=== PATIENT | female | born 1995 | race Caucasian/White ===

== ENCOUNTER 2020-03-18 23:28 | Inpatient (IN) | payer BC ==
--- OUTSIDE RECORDS SUMMARY | 2020-03-18 23:30 | XMS REPORT | Continuity of Care Document ---
:1995 Author Organization [employer] Care Team Providers Name Role Phone Stageit Information mParticle Unavailable Un available Problems Problem Status Onset Classification Date Comments Sourc e Date Reported PAINFUL Active [facility] HARDWARE RIGHT 6 Medic al ANKLE Center RIGHT Active [facility] BIMALLEOLAR 6 Medical ANKLE FRACTURE Cente r ACETABULAT/H[place] FX 6 [facility] Center R FEMORAL HEAD [place] FX 6 [place] W/DISLOCATION Center Fracture of [place] ankle [place] (disorder[place] Center Kidney stone Resolved Problem 07/27/2016 [place] (disorder[facility] Medical Center Morbid obesity Active Problem 07/27/2016 [place] (disorder[place] [facility] Center FRACTURE OF Active [facility] UNSP PART OF Medical NECK OF RIGHT F Cent er DISPL BIMALLEOL Active [facility] [place] FX R LOW LEG, Medica l SUBS FOR C Center Medications Medication Details Route Status Patient Ordering Order Source Instructions Provider Date Dextrose 50% in 50 mL, Route: No Longer [facility] Water IV IV, Start date: Active 2015 Medical 07/24/16 Center 10:38:00 CDT, Duration: 30 day, Stop date: 08/23/16 10:37:00 CDT, PRN Blood Glucose Results Acetaminophen 325 Notes: Do not No Longer [facility] MG / Hydrocodone exceed 4gm/day Active 2016 Medical Bitartrate 10 MG of Center Oral Tablet acetaminophen. [Rudolph 10/325] (Same as: Rudolph 325/10) Acetaminophen 325 Notes: (Same No Longer [facility] MG / Hydrocodone as: Rudolph Active 2015 Medic al Bitartrate 5 MG 325/5) Do not C enter Oral Tablet exceed 4gm/day [Rudolph 5/325] of acetaminophen. Insulin, Aspart, Notes: Roll in No Longer [facility] Human palms of hands Active 2015 Medical gently; Do not Center shake vigorously. (Same as: NovoLOG) "single patient use only" WASTE: F/P - Black; E - Municipal Trash Bin Stable for 28 days at room temperature. Expires in days from D ate Acetaminophen Notes: Max [place] Longer [place] acetaminophen Active 2015 Medical 4000 mg/day (4 Center gm/day). (Same as: Tylenol Extra Strength) Morphine Notes: (Same No Longer [place] as:MORPhine Active 2015 [facility] Sulfate) Center Hydromorphone Notes: (Same No Longer [place] as: Dilaudid) Active 2015 Medical Center Hydralazine Notes: (Same [place] Longer [place] as: Apresoline) Active 2015 Medical Push over 5 Center minutes Labetalol 10 mg, 2 mL, [place] Longer [place] Route: IVP, Active 2015 Medical Drug form: INJ, Center Q5Min, Dosing Weight 105.455, kg, PRN Elevated BP, Start date: 07/24/16 8:17:00 CDT, Duration: 5 doses or times, Stop date: 07/25/16 0:00:00 CDT Ondansetron Notes: (Same [place] Longer [place] as: Zofran) Active 2015 Medical MEDICATION Center WASTE Product Size: 4 mg Product Wasted: ___ mg Flumazenil Notes: (Same No Longer [place] as: Romazicon) Active 2015 Medical Center Naloxone Notes: Same as No Longer [place] Narcan Active 2015 [facility] Center tramadol 50 mg, PO, Q8H, [place] hydrochloride 50 PRN Pain Score 2016 Medical MG Oral Tablet 1-3, 0 Center Refill(s) tramadol 50 mg, PO, Q8H, Inactive [place] hydrochloride 50 PRN Pain Score 2016 Medical MG Oral Tablet 1-3, # 15 tab, Ce nter 0 Refill(s) pneumococcal Notes: (Same Inactive [place] capsular as: Pneumovax 2015 Medical polysaccharide 23) Center type 1 vaccine / Refrigerate pneumococcal capsular polysaccharide type 10A vaccine / pneumococcal capsular polysaccharide type 11A vaccine / pneumococcal capsular polysaccharide type 12F vaccine / pneumococcal capsular polysacchar Docusate Sodium 100 mg = 1 cap, Active [place] 100 MG Oral PO, BID, # 60 2016 Medica l Capsule [Colace] cap, 0 Center Refill(s) Acetaminophen 300 1 tab, PO, Q4H, Active [place] MG / Codeine PRN Pain, X 7 2016 Medic al Phosphate 30 MG day, # 42 tab, C enter Oral Tablet 0 Refill(s) [Tylenol with Codeine #3] Aspirin 325 MG 325 mg = 1 tab, Active H [place] Oral Tablet PO, Q12H, # 28 2016 Medic al tab, 0 Center Refill(s) Lovenox Notes: (Same Inactive [place] as: Lovenox) 2016 [facility] tramadol Notes: Not to [place] Longer [place] hydrochloride 50 exceed Active 2015 Medical MG Oral Tablet 400mg/day. Center (Same As: [facility]) docusate sodium Notes: (Same No Longer [place] 100 mg oral as: Colace) (Do Active 2015 Medi lalit capsule Not Crush) Center Cefazolin Notes: (Same No Longer [place] As: Ancef, Active 2016 [facility] Kefzol) Center Cefazolin FOR IV SET ONLY MEDICATION WASTE Product Size: 1000 mg Product Wasted: ___ mg Promethazine Notes: Do not Inactive [place] give IV push. 2016 Medical (Same as: Center Phenergan) Naloxone Notes: Same as [place] Narcan 2016 [facility] Center Flumazenil Notes: (Same [place] as: Romazicon) 2016 [facility] Oxycodone Notes: (Same Inactive [place] as: Roxicodone) 2016 [facility] Hydromorphone Notes: Same as: Inactive H [place] Dilaudid 2016 [facility] Ondansetron Notes: (Same Inactive [place] as: Zofran) 2016 Medical MEDICATION Center WASTE Product Size: 4 mg Product Wasted: ___ mg Dulcolax Laxative Notes: (Same No Longer [facility] [place] As: Dulcolax, Active 2015 Medical Correctol) (Do Center Not Crush) "Do Not Crush" Promethazine Notes: Do not Inactive [place] give IV push. 2016 Medical (Same as: Center Phenergan) Ondansetron Notes: (Same [place] Longer [place] as: Zofran) Active 2015 Medical MEDICATION Center WASTE Product Size: 4 mg Product Wasted: ___ mg Morphine Notes: (Same Inactive [facility] as:MORPhine 2016 Medical Sulfate) Center Tramadol Notes: Not to Inactive [place] exceed 2016 Medical 400mg/day. Center (Same As: Ultra) acetaminophen-cod Notes: Do not No Longer [facility] eine #3 exceed 4gm/day Active 2015 Medical of Center acetaminophen. (Same as: Tylenol with Codeine # 3) Diphenhydramine Notes: (Same No Longer [place] as: Benadryl) Active 2015 [facility] Center Al hydroxide/Mg Notes: No Longer [place] hydroxide/simethi (aluminum Active 2015 Medi lalit cone 200 mg-200 hydroxide-magne [place] mg-20 mg/5 mL sium oral suspension hyd-simethicone [phone] l 30 ml ud VIANNEY) Ancef 2 gm, Route: Inactive [place] IVPB, ONCE, 2016 Medical Dosing Weight Center 104.545, kg, Start date: 02/28/16 9:02:00 CDT, Duration: 1 doses or times, Stop date: 02/28/16 9:02:00 CDT, Surgical Prophylaxis Only; For patients < 120 kg Aspirin 325 MG 325 mg = 1 tab, Active H [place] Oral Tablet PO, Daily, PRN 2016 Medic al Fever, # 60 Center tab, 0 Refill(s) tramadol 50 mg = 1 tab, Active [place] hydrochloride 50 PO, BID, # 180 2016 Medical MG Oral Tablet tab, 1 Center Refill(s) Acetaminophen 300 1 tab, PO, Q6H, Active [facility] MG / Codeine PRN Pain, # 60 2016 Medi lalit Phosphate 30 MG tab, 0 Center Oral Tablet Refill(s) [Tylenol with Codeine #3] Aspirin 325 MG 325 mg = 1 tab, Active H [place] Enteric Coated PO, Q12H, # 42 2016 Nm dical Tablet tab, 0 Center Refill(s) Acetaminophen 300 1 - 2 tab, PO, Active [facility] MG / Codeine Q4H, PRN Pain, 2016 Medi lalit Phosphate 30 MG X 4 day, # 36 Ce nter Oral Tablet tab, 0 [Tylenol with Refill(s) Codeine #3] tramadol 100 mg = 2 tab, [place] hydrochloride 50 PO, Q6H, # 30 2016 edical MG Oral Tablet tab, 0 Center Refill(s) Lovenox Notes: (Same No Longer [facility] as: Lovenox) Active 2016 Medical Center sennosides, DETENTION Notes: (Same No Longer [facility] as: Senokot) Active 2016 Medical Center Docusate Notes: (Same No Longer [facility] as: Colace) (Do Active 2015 Medical Not Crush) Center Acetaminophen 325 Notes: (Same No Longer [facility] MG / Hydrocodone as: Rudolph Active 2015 Medic al Bitartrate 5 MG 325/5) Do not C enter Oral Tablet exceed 4gm/day [Rudolph 5/325] of acetaminophen. Tramadol Notes: Not to [place]er [place] exceed Active 2015 Medical 400mg/day. Center (Same As: Ultram) celecoxib Notes: NSAID. No Longer [place] Please check Active 2015 Medical indication. Not Center for seizure. (Same As: CeleBREX) pregabalin Notes: (Same No Longer [place] as: Lyrica) Active 2016 Medical Center Lovenox Notes: (Same Inactive [facility] as: Lovenox) 2016 Medical Center Ketamine 80 mg, Route: Inactive [place] IVP, ONCE, 2015 Medical Dosing Weight Center 106.818, kg, Start date: 02/14/16 7:55:00 CDT, Stop date: 02/14/16 7:55:00 CDT Propofol 110 mg, Route: [place] IVP, ONCE, 2015 Medical Dosing Weight Center 106.818, kg, Start date: 02/14/16 7:54:00 CDT, Stop date: 02/14/16 7:54:00 CDT Morphine 4 mg, Route: Inactive [facility] IVP, Drug form: 2015 Medical INJ, ONCE, Center Dosing Weight 106.818, kg, Priority: STAT, Start date: 02/14/16 6:13:00 CDT, Stop date: 02/14/16 6:13:00 CDT Saline Flush 0.9% Notes: Same as: No Longer 01/30 [facility] BD Posiflush Active 2015 Medical Sterile Center Allergies, Adverse Reactions, Alerts No Known Medication Allergies Immunizations Immunization Date Given Site Status Last Updated Comments Kyra rce pneumococcal 02/29/2016 Not Given [facility] as 23-valent vaccine Nm dical Center Results Order Name Results Value Reference Date Interpretation Comments Kyra rce Range DRUG SCREEN UDS Note See Note 02/14 [facility] (02/15/16 5:11 AM) /2015 Medica l Center DRUG SCREEN U Cannab Scr Positive Negative 02/14 [place] *ABN* [facility] (02/15/16 5:11 AM) Center DRUG SCREEN U Cocaine Scr Negative Negative 02/14 [place] *NA* [facility] (02/15/16 5:11 AM) Center DRUG SCREEN U Opiate Scr Positive Negative 02/14 [place] *ABN* [facility] (02/15/16 5:11 AM) Center DRUG SCREEN U Phencyc Scr Negative Negative 02/14 [place] *NA* [facility] (02/15/16 5:11 AM) Center DRUG SCREEN U Amph Scr Negative Negative 02/14 [place] *NA* Medical (02/15/16 5:11 AM) Center DRUG SCREEN U Nicole Scr Negative Negative 02/14 [place] *NA* Medical (02/15/16 5:11 AM) Center DRUG SCREEN U Benzodia Negative Negative 02/14 [place] Scr *NA* [facility] (02/15/16 5:11 AM) Center URINE AND UA Ketones TR 02/14 [facility] STOOL /2015 Medical Center URINE AND UA Mucus Few /LPF None Seen 02/14 [facility] STOOL /LPF /2015 Medical [place] URINE AND UA RBC 1 0 - 2 02/14 [facility] STOOL /2015 [facility] URINE AND UA Bacteria Occasional None Seen 02/14 [place] STOOL /HPF /HPF [facility] URINE AND UA Protein 30 mg/dL Negative 02/14 [facility] STOOL mg/dL [facility] URINE AND UA Glucose Negative Negative 02/14 [facility] mg/dL mg/dL [facility] URINE AND UA Sq Epi None Seen 02/14 [facility] STOOL [facility] URINE AND UA CaOx Susie Occasional None Seen 02/14 [place] STOOL /HPF /HPF [facility] URINE AND UA 2.0 0.1 - 1.0 02/14 [facility] Urobilinogen /2015 [facility] URINE AND UA Blood Negative Negative 02/14 [facility] (02/15/16 5:11 AM) [facility] URINE AND UA Bili Negative Negative 02/14 [facility] *NA* [facility] (02/15/16 5:11 AM) [place] URINE AND UA Nitrite Negative Negative 02/14 [facility] STOOL (02/15/16 5:11 AM) [facility] URINE AND UA WBC 3 0 - 5 02/14 [facility] STOOL [facility] URINE AND UA Leuk Est Negative Negative 02/14 [facility] STOOL (02/15/16 5:11 AM) [facility] URINE AND UA Turbidity Clear Clear 02/14 [facility] (02/15/16 5:11 AM) [facility] URINE AND UA Spec Grav 1.037 <=1.030 02/14 [facility] STOOL [facility] URINE AND UA pH 6.5 5.0 - 8.0 02/14 [facility] STOOL [facility] URINE AND UA Color Yellow Yellow 02/14 [facility] STOOL *NA* /2015 Medical (02/15/16 5:11 AM) [place] CHEM PANEL Lactic Acid 0.5 0.5 - 2.2 02/13 [place] Lvl /2015 [facility] BLOOD BANK Antibody Scrn Negative 02/13 [place] RESULTS (02/14/16 5:12 AM) [facility] BLOOD BANK ABO/Rh A POS 02/13 [facility] RESULTS [facility] ELECTROLYTE AGAP 15.5 10.0 - 02/13 [facility] S 20.0 [facility] ELECTROLYTE B/C Ratio 16 6 - 25 02/13 [facility] ELECTROLYTE A/G Ratio 1.0 0.7 - 1.6 02/13 [facility] ELECTROLYTE Globulin 3.6 2.0 - 4.0 02/13 [facility] ELECTROLYTE Creatinine 0.70 0.50 - 02/13 [facility] S Lvl 1.40 /2015 [facility] ELECTROLYTE Sodium Lvl 138 135 - 145 02/13 [facility] ELECTROLYTE Glucose Lvl 131 70 - 99 02/13 [facility] ELECTROLYTE BUN 11 7 - 22 02/13 [facility] ELECTROLYTE CO2 22 24 - 32 02/13 [facility] ELECTROLYTE Potassium Lvl 4.5 3.5 - 5.1 02/13 [facility] ELECTROLYTE Calcium Lvl 8.7 8.5 - 10.5 02/13 [place] [facility] ELECTROLYTE Chloride Lvl 105 95 - 109 02/13 [facility] ELECTROLYTE eGFR 127 02/13 [facility] Comment: The Medical eGFR is Center calculated using the CKD-EPI formula. In most young, healthy individuals the eGFR will be >90 mL/min/1.73m2 . The eGFR declines with age. An eGFR of 60-89 may be normal in some populations, particularly the elderly, for whom the CKD-EPI formula has not been extensively validated. Use of the eGFR is not recommended in the following populations:< br/>
Tere viduals with unstable creatinine concentration s, including patients and those with serious co-morbid conditions.<b r/>
Patie nts with extremes in muscle mass or diet.

The data above are obtained from the National Kidney Disease Education Program (NKDEP) which additionally recommends that when the eGFR is used in patients with extremes of body mass index for purposes of drug dosing, the eGFR should be multiplied by the estimated BMI. ELECTROLYTE Total Protein 7.3 6.4 - 8.4 02/13 [facility] ELECTROLYTE Albumin Lvl 3.7 3.5 - 5.0 02/13 [facility] ELECTROLYTE Bili Total 0.6 0.2 - 1.3 02/13 [facility] ELECTROLYTE ALT 33 0 - 65 02/13 [facility] ELECTROLYTE Alk Phos 102 39 - 136 02/13 [facility] ELECTROLYTE AST 35 0 - 37 02/13 [facility] ENDOCRINOLO S Preg Negative Negative 02/13 [facility] GY (02/14/16 5:10 AM) [facility] HEMATOLOGY Plt Morph Normal 02/13 [facility] (02/14/16 5:10 AM) [facility] HEMATOLOGY RBC Morph Normal 02/13 [facility] (02/14/16 5:10 AM) [facility] HEMATOLOGY Basophils 0.4 0.0 - 1.0 02/13 [facility] HEMATOLOGY Segs-Bands # 25.3 1.5 - 8.1 02/13 [facility] HEMATOLOGY Lymphocytes 3.8 20.0 - 02/13 [place] 40.0 [facility] HEMATOLOGY Segs 93.0 45.0 - 02/13 [place] 75.0 [facility] HEMATOLOGY Lymphocytes # 1.0 1.0 - 5.5 02/13 [place] [facility] HEMATOLOGY Basophils # 0.1 0.0 - 0.2 02/13 a s [facility] HEMATOLOGY Monocytes # 0.8 0.0 - 0.8 02/13 a s [facility] HEMATOLOGY Monocytes 2.8 2.0 - 12.0 02/13 [facility] HEMATOLOGY G-value 12.4 5.0 - 11.6 02/13 [facility] HEMATOLOGY Max Amp 71 52 - 71 02/13 [facility] HEMATOLOGY R-time 0.5 0.4 - 0.7 02/13 [facility] HEMATOLOGY [place] 0.4 02/13 [facility] HEMATOLOGY Rapid TEG Citrated Whole Blood 02/13 [facility] Sample Type (02/14/16 5:10 AM) /2015 [facility] HEMATOLOGY ACT (TEG) 97 86 - 118 02/13 [facility] HEMATOLOGY K-time 1.0 0.6 - 2.3 02/13 [facility] HEMATOLOGY Angle 78 64 - 80 02/13 [facility] HEMATOLOGY Estimated % 0.5 0.0 - 7.5 02/13 [place] L[place] [facility] HEMATOLOGY RDW 14.2 11.5 - 02/13 [facility] 14.5 [facility] HEMATOLOGY MCH 26.4 27.0 - 02/13 [facility] 31.0 [facility] HEMATOLOGY MCHC 31.7 32.0 - 02/13 [facility] 36.0 [facility] HEMATOLOGY Platelet 247 133 - 450 02/13 [facility] HEMATOLOGY MPV 9.2 7.4 - 10.4 02/13 [facility] HEMATOLOGY Hgb 12.4 12.0 - 02/13 [facility] 16.0 [facility] HEMATOLOGY Hct 39.1 36.0 - 02/13 [facility] 48.0 [facility] HEMATOLOGY MCV 83.1 80.0 - 02/13 [facility] 98.0 [facility] HEMATOLOGY WBC 27.3 3.7 - 10.4 02/13 [facility] HEMATOLOGY RBC 4.71 4.20 - 02/13 [facility] 5.40 [facility] TOXICOLOGY Etoh (%) <0.003 02/13 [facility] TOXICOLOGY Ethanol Lvl <3 02/13 [facility] Pathology Reports No Data Provided for This Section Diagnostic Reports Report Value Date Source Ankle 3 views DX EXAM: XR RIGHT ANKLE 3 VIEWS 02/28/2016 [facility] DATE: 02/28/2016 1029 hours Cente r INDICATION: Fracture/Surgery COMPARISON: Right ankle radiograph dated 016. TECHNIQUE: AP, lateral and oblique radiographs of the right ankle FINDINGS: There has been an interval lateral plate and screw fixation of the distal right fibular shaft fracture with a single syndesmotic screw also present. Two cortical screws have also been placed through the medial malleolus fracture. The orthopedic hardware through the fracture fragments are in satisfactory alignment. The ankle mortise is congruent. Moderate right ankle soft t issue swelling is noted. A small ankle joint effusion is present. IMPRESSION: Satisfactory al ignment post fixation of the distal right fibular shaft and medial malleolar fractures. Chest 1view DX EXAM: XR CHEST 1 VIEW 02/15/2016 [facility] DATE: 02/15/2016 3:00 AM CDT Cent er INDICATION: Pain Post Trauma COMPARISON: Yesterday morning. TECHNIQUE: AP chest FINDINGS: The inspiratory vo lumes are small but improved from the prior. The lungs are clear. No pneumothorax or pleural effusion. Stable mediastinal contours. IMPRESSION: No acute findings in the chest. Chest 1view DX EXAM: XR CHEST 1 VIEW 02/14/2016 [facility] edical DATE: 02/14/2016 9:20 AM CDT Cent er INDICATION: Pain Post Trauma COMPARISON: Chest x-ray on 02/14/2016 at 0434 stephany rs TECHNIQUE: AP chest FINDINGS: The inspiratory vo lumes are small which accounts for prominence of the cardiac silhouette and some vascular crowding. No pneumothorax is visualized however a supine or semierect radiograph is suboptimal for that determin ation. An erect film of the chest is necessary in order to exclude small pneumothoraces. No pulmonary or pleural-based abnormality is identified. Pulmonary vascularity is nor mal. The heart size is french l for technique. Left posterior first rib fracture better appreciated on previous cross-sectional imaging. IMPRESSION: Low lung volumes with associated vascular crowdi ng. No radiographically evident pneumothorax. Pelvis wo IV EXAM: CT PELVIS WITHOUT CONTRAST 02/14/2016 [facility] contrast/w 3D CT DATE: 02/14/2016 at 0817 hours C enter INDICATION: Abdominal pain, acute TECHNIQUE: Volumetric CT acq uisition of the pelvis without contrast. Axial, sagittal and coronal reformats. IV contrast: None. DLP: 1051 mGy-cm COMPARISON: Chest abdomen pe lvis CT and multiple pelvic radiographs dated 02/14/2016 DISCUSSION: Bones: The right hip is bee n reduced to anatomic position. Multiple intra- articular fracture fragments are present, the largest disc shaped fragment representing the anteroinferior portion of the femor al head and measuring 3 cm i n diameter. The femur is otherwise intact. The right acetabulum and remainder of the pelvis are intact. No pubic symphysis or sacroiliac joint diastasis. Intrapelvic soft tissues: Th e bladder is distended with urine containing excreted contrast. A small volume of free fluid is present with in the retrovesical space, but this fluid is not contrast-enhance d, and its volume has not increased since the CT of 0533 hours this morning. Surrounding soft tissues: T here is moderate swelling of the adductor group muscles. IMPRESSION: 1. Near anatomic alignment following closed red uction.. 2. Multiple intraarticular fracture fragments. The dominant fragment originating from a shear fracture of the anteroinferior femoral head measures 3 cm in diameter and is in anatomic alignment. The remaining intra-articular fragments are punctate. 3. Trace free fluid deep in the pelvis without increase in volume since the comparison CT. 4. Swelling of the musculature surrounding the right hip. Ankle 3 views DX EXAM: XR RIGHT ANKLE 3 VIEWS 02/14/2016 [facility] DATE: 02/14/2016 7:49 AM CDT [facility] er INDICATION: Post-Reduction COMPARISON: Ankle x-ray on 02/14/2016 at 0434 stephany rs TECHNIQUE: AP, lateral and oblique radiographs of the right ankle FINDINGS: Interval casting and reduction of oblique fibular shaft fracture now in near anatomic alignment. Again noted mildly displaced medial malleolar fracture with improved distraction now measuring 2.4 mm. The ankle mortise is congruent. Moderate soft tissue swelling around ankle. IMPRESSION: 1. Interval casting and redu ction of fibular shaft and medial malleolar fractures, Pronation-abduction Stage III ankle injury, with improved alignment. 2. Moderate soft tissue swelling of the right an kle. Pelvis AP DX EXAM: XR PELVIS 1 VIEW 02/14/2016 [facility] DATE: 02/14/2016 8:00 AM T [facility] er INDICATION: Fracture COMPARISON: Pelvis x-ray on 02/14/2016 at 0734 ho urs TECHNIQUE: A single AP supine radiograph of the pelvis FINDINGS: Again noted reduct ion of the right posterior hip dislocation. Alignment is preserved. No acute fracture or malalignment is identified. Retained contrast noted filling the bladder. The soft tissues are unremarkable. IMPRESSION: Preserved, unchanged anatomi c alignment of the right hip. Left hip is unremarkable. Pelvis AP DX EXAM: XR PELVIS 1 VIEW 02/14/2016 [facility] DATE: 02/14/2016 7:31 AM T [facility] er INDICATION: Fracture COMPARISON: Pelvis AP on 01/30 at 0434 hours, chest, abdomen and pelvis CT on 02/14/2016 TECHNIQUE: A single AP supine radiograph of the pelvis FINDINGS: Interval reduction of the posterior hip dislocation now in anatomic alignment. Again noted femoral head fracture appears unchanged and is better seen on prior cross-sectional imaging. No other acute fracture or malalignm ent is identified. Retained contrast noted to fill the bladder. The soft tissues are unremarkable. IMPRESSION: Interval reduction of the ri ght posterior hip dislocation now in anatomic alignment. Stable right femoral head fracture. Spine-Outside EXAM: CT CERVICAL SPINE WITHOUT CONTRAST 016 [facility] DATE: 02/14/2016 5:30 AM CDT Cent er INDICATION: Outside hospital study submitted for 2nd interpretation COMPARISON: None. TECHNIQUE: Study performed a [facility] on 02/14/2016 at 1:32 AM. Volumetric acquisition of the cervical spine without contrast. Axial, sagittal and coronal reconstructions. IV contrast: None. DLP: 977 mGy-cm FINDINGS: The spine is image d from the skull base to the level of T1. Image noise limits assessment in the lower cervical region. There is reversal of normal cervical lordosis. No acute fracture or malalig nment identified in the cervical spine. No pre or paravertebral hematoma seen. There is a nondisplaced left 1st posterior rib fracture. IMPRESSION: 1. No acute fracture or malalignment in the cerv ical spine. 2. Nondisplaced posterior left 1st rib fracture. Torso-Outside EXAM: CT CHEST WITH CONTRAST 02/14/2016 [facility] CT EXAM: CT ABDOMEN AND PELVIS WITH CONTRAST Center DATE: 02/14/2016 5:30 AM CDT INDICATION: Outside hospital study submitted for 2nd interpretation. COMPARISON: None. TECHNIQUE: Study performed a [facility] on 02/14/2016 at 1:14 AM. Volumetric acquisition of the chest, abdomen and pelvis following intravenous administration of contrast. Delaye d imaging was then performed through the abdomen and pelvis, using a radiation reduction technique. Axial, coronal and sagittal reformats. IV contrast: Yes Oral contrast: None. DLP: 3102 mGy-cm FINDINGS: The reformatted images are n ot of diagnostic quality. Hence, the overall evaluation is limited. Specifically, the spine may not be cleared based on this exam. Chest: No mediastinal hematoma or t horacic aortic injury identified. Focal opacity seen in the medial right lung base, image 42 on series 7 may represent atelectasis/contusion. A 3 mm pleural-based nodule is s een in the left lower lobe, image 30 on series 7. No pleural fluid or pneumothorax. Abdomen: No traumatic abnormality flori ntified in the liver, gallbladder, pancreas, spleen, adrenal glands, both kidneys, and bowel and mesentery. Incidentally noted is a 1 cm hypodensity in the right renal upper pole, not well characterized on this exam. The urinary bladder is not w ell distended and could not be assessed. The uterus and adnexa are unremarkable. Trace amount of physiologic fluid is seen within the pelvis. No free intraperitoneal air identified. Spine/Bones: Displaced fracture of the ri ght femoral head is seen with posterior dislocation of the right hip joint. The femoral head fracture fragment projects within the right hip joint space. Small amount of gas seen within the hip joint with hemarthrosis. Nondisplaced left posterior 1st rib fracture is seen. No obvious spine fracture seen on the axial images. However, assessment is incomplete without diagnostic quality reformatted images of the spine. IMPRESSION: 1. Assessment is limited as the reformatted images are not of diagnostic quality. The spine cannot be cleared based on this exam. 2. Focal opacity in the medi al right lung base may represent atelectasis/contusion. 3. No acute traumatic abnormality identified in the abdomen. 4. A 1 cm hypodensity in the

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
--- OUTSIDE RECORDS SUMMARY | 2020-03-18 23:31 | XMS REPORT | Summary of Care ---
:1995 Author Organization [facility] Address [address], [place] [address]- Encounter HQ Encntr_layla(FIN) [id number] Date(s): 02/28/16 - 02/29/16 [facility] [address] [place] [address] Professional Services provided by [facility] [place] [address]- Discharge Disposition: Home Attending Physician: Luigi Corbin MD Admitting Physician: Luigi Corbin MD Referring Physician: Luigi Corbin MD Vital Signs Most recent to oldest 1 2 3 [Reference Range]: Height 162.56 cm 162.56 cm (02/28/16 2:03 PM) (02/27/16 8:39 AM) Temperature Oral [96.4-99.1 97.9 DegF 98.4 DegF 98.4 DegF DegF] (02/29/16 7:46 AM) (02/29/16 3:06 AM) (02/28/16 11: 30 PM) Blood Pressure [90-140/60-90 120/64 mmHg 116/67 mmHg 114 /65 mmHg mmHg] (02/29/16 7:46 AM) (02/29/16 3:06 AM) (02/28/16 11: 30 PM) Respiratory Rate [14-20 BRMIN] 18 BRMIN 18 BRMIN 1 8 BRMIN (02/29/16 7:46 AM) (02/29/16 3:06 AM) (02/28/16 11: 30 PM) Peripheral Pulse Rate [60-100 74 bpm 61 bpm 72 bpm bpm] (02/29/16 7:46 AM) (02/29/16 3:06 AM) (02/28/16 11: 30 PM) Weight 104 kg 104.545 kg (02/28/16 2:03 PM) (02/27/16 8:39 AM) Body Mass Index 39.36 m2 39.56 m2 (02/28/16 2:03 PM) (02/27/16 8:39 AM) Problem List Condition Effective Dates Status Health Status Informant Ankle fracture(Confirmed) Active Kidney stone(Confirmed) Resolved Morbid obesity(Confirmed) Active Allergies, Adverse Reactions, Alerts Substance Reaction Severity Status NKDA Active Medications acetaminophen-codeine #3 2 tab, Route: PO, Drug Form: TAB, Dosing Weight 104.545, kg, Q4H, PRN Pain Score 4-6, Start date: 02/28/16 10:42:00 CDT, Duration: 30 day, Stop date: 03/29/16 10:41:00 CDT Notes: Do not exceed 4gm/day of acetaminophen. (Same as: Tylenol with Codeine # 3) Start Date: 02/28/16 Stop Date: 02/29/16 Status: DiscontinuedAl hydroxide/Mg hydroxide/simethicone 200 mg-200 mg-20 mg/5 mL oral suspension 30 ml, Route: PO, Drug Form: SUSP, Dosing Weight 104.545, kg, Q4H, PRN Indigestion, Start date: 02/28/16 10:42:00 CDT, Duration: 30 day, Stop date: 03/29/16 10:41:00 CDT Notes: (aluminum hydroxide-magnesium hyd-simethicone [phone]/5ml 30 ml ud VIANNEY) Start Date: 02/28/16 Stop Date: 02/29/16 Status: DiscontinuedAncef 2 gm, Route: IVPB, ONCE, Dosing Weight 104.545, kg, Start date: 02/28/16 9:02:00 CDT, Duration: 1 doses or times, Stop date: 02/28/16 9:02:00 CDT, Surgical Prophylaxis Only; For patients < 120 kg Start Date: 02/28/16 Stop Date: 02/28/16 Status: Completedaspirin 325 mg tablet 325 mg = 1 tab, PO, Daily, PRN Fever, # 60 tab, 0 Refill(s) Start Date: 02/27/16 Status: Orderedaspirin 325 mg tablet 325 mg = 1 tab, PO, Q12H, # 28 tab, 0 Refill(s) Start Date: 02/29/16 Stop Date: 03/14/16 Status: OrderedceFAZolin + Sodium Chloride 0.9% IV 100 mL 2 gm, Route: IVPB, Drug form: INJ, Q8H, Dosing Weight 104.545, kg, Start date: 02/28/16 16:00:00 CDT, Duration: 1 day, Stop date: 02/29/16 8:00:00 CDT Notes: (Same As: Mari Garcia)Cefazolin FOR IV SET ONLY MEDICATION WASTE Product Size:1000 mgProduct Wasted: ___ mg Start Date: 02/28/16 Stop Date: 02/29/16 Status: CompletedColace 100 mg oral capsule 100 mg = 1 cap, PO, BID, # 60 cap, 0 Refill(s) Start Date: 02/29/16 Status: OrdereddiphenhydrAMINE 12.5 mg, 5 mL, Route: PO, Drug form: LIQ, Q6H, Dosing Weight 104.545, kg, PRN Itching, Start date: 02/28/16 10:42:00 CDT, Duration: 30 day, Stop date: 03/29/16 10:41:00 CDT Notes: (Same as: Benadryl) Start Date: 02/28/16 Stop Date: 02/29/16 Status: Discontinueddocusate sodium 100 mg oral capsule 100 mg, 1 cap, Route: PO, Drug form: CAP, BID, Dosing Weight 104.545, kg, Start date: 02/28/16 17:00:00 CDT, Duration: 30 day, Stop date: 03/29/16 9:00:00 CDT Notes: (Same as: Colace) (Do Not Crush) Start Date: 02/28/16 Stop Date: 02/29/16 Status: DiscontinuedDulcolax Laxative 5 mg, 1 tab, Route: PO, Drug form: ECTAB, Q24H, Dosing Weight 104.545, kg, PRN Constipation, Start date: 02/28/16 10:42:00 CDT, Duration: 30 day, Stop date: 03/29/16 10:41:00 CDT Notes: (Same As: Dulcolax, Correctol) (Do Not Crush) "Do Not Crush" Start Date: 02/28/16 Stop Date: 02/29/16 Status: Discontinuedflumazenil 0.2 mg, 2 mL, Route: IVP, Drug form: INJ, PRN, Dosing Weight 104.545, kg, PRN Benzodiazepine Reversal, Initial dose, Start date: 02/28/16 10:52:00 CDT, Duration: 30 day, Stop date: 03/29/16 10:51:00 CDT Notes: (Same as: Romazicon) Start Date: 02/28/16 Stop Date: 02/28/16 Status: Discontinuedhydromorphone 0.5 mg, 0.25 mL, Route: IVP, Drug form: INJ, Q5Min, Dosing Weight 104.545, kg, PRN Pain Score 7-10, Start date: 02/28/16 10:52:00 CDT, Duration: 4 doses or times, Stop date: 02/29/16 0:00:00 CDT Notes: Same as: Dilaudid Start Date: 02/28/16 Stop Date: 02/28/16 Status: DiscontinuedLovenox 40 mg, 0.4 mL, Route: SUB-Q, Drug form: INJ, [id number], Dosing Weight 104, kg, Start date: 02/29/16 7:00:00 CDT, Duration: 30 day, Stop date: 03/29/16 7:00:00 CDT Notes: (Same as: Lovenox) Start Date: 02/29/16 Stop Date: 02/29/16 Status: Discontinuedmorphine Sulfate 2 mg, 0.5 mL, Route: IVP, Drug form: INJ, Q3H, Dosing Weight 104.545, kg, PRN Pain Score 1-3, Start date: 02/28/16 10:42:00 CDT, Duration: 30 day, Stop date: 03/29/16 10:41:00 CDT Notes: (Same as:MORPhine Sulfate) Start Date: 02/28/16 Stop Date: 02/28/16 Status: Discontinuednaloxone 0.04 mg, 0.1 mL, Route: IVP, Drug form: INJ, Q2MIN, Dosing Weight 104.545, kg, PRN Narcotic Reversal, Start date: 02/28/16 10:52:00 CDT, Duration: 8 doses or times, Stop date: 02/29/16 0:00:00 CDT Notes: Same as Narcan Start Date: 02/28/16 Stop Date: 02/28/16 Status: Discontinuedondansetron 4 mg, 2 mL, Route: IVP, Drug form: INJ, Q6H, Dosing Weight 104.545, kg, PRN Nausea & Vomiting, Start date: 02/28/16 10:42:00 CDT, Duration: 30 day, Stop date: 03/29/16 10:41:00 CDT Notes: (Same as: Zofran) MEDICATION WASTE Product Size: 4 mgProduct Wasted: ___ mg Start Date: 02/28/16 Stop Date: 02/29/16 Status: Discontinuedondansetron 4 mg, 2 mL, Route: IVP, Drug form: INJ, ONCE, Dosing Weight 104.545, kg, PRN Nausea & Vomiting, Start date: 02/28/16 10:52:00 CDT Notes: (Same as: Zofran) MEDICATION WASTE Product Size: 4 mgProduct Wasted: ___ mg Start Date: 02/28/16 Stop Date: 02/28/16 Status: DiscontinuedoxyCODONE 5 mg, 1 tab, Route: PO, Drug form: TAB, Q4H, Dosing Weight 104.545, kg, PRN Pain Score 4-6, Start date: 02/28/16 10:52:00 CDT, Duration: 30 day, Stop date: 03/29/16 10:51:00 CDT Notes: (Same as: Roxicodone) Start Date: 02/28/16 Stop Date: 02/28/16 Status: Discontinuedpneumococcal 23-valent vaccine 0.5 mL, Route: IM, Drug Form: INJ, Daily, Start date: 02/29/16 9:00:00 CDT, Duration: 1 doses or times, Stop date: 02/29/16 9:00:00 CDT Notes: (Same as: Pneumovax 23) Refrigerate Start Date: 02/29/16 Stop Date: 02/29/16 Status: Completedpromethazine 12.5 mg, 0.5 mL, Route: IVPB, Drug form: INJ, Q4H, Dosing Weight 104.545, kg, PRN Nausea & Vomiting, Start date: 02/28/16 10:42:00 CDT, Duration: 30 day, Stop date: 03/29/16 10:41:00 CDT Notes: Do not give IV push. (Same as: Phenergan) Start Date: 02/28/16 Stop Date: 02/28/16 Status: Discontinuedpromethazine 6.25 mg, 0.25 mL, Route: IVPB, Drug form: INJ, ONCE, Dosing Weight 104.545, kg, PRN Nausea & Vomiting, Start date: 02/28/16 10:52:00 CDT Notes: Do not give IV push. (Same as: Phenergan) Start Date: 02/28/16 Stop Date: 02/28/16 Status: Discontinuedtramadol 50 mg, 1 tab, Route: PO, Drug form: TAB, Q6H, Dosing Weight 104.545, kg, PRN Pain Score 1-3, Start date: 02/28/16 10:42:00 CDT, Duration: 30 day, Stop date: 03/29/16 10:41:00 CDT Notes: Not to exceed 400mg/day. (Same As: Ultram) Start Date: 02/28/16 Stop Date: 02/28/16 Status: Discontinuedtramadol 50 mg oral tablet 50 mg = 1 tab, PO, BID, # 180 tab, 1 Refill(s) Start Date: 02/27/16 Stop Date: 05/27/16 Status: Orderedtramadol 50 mg oral tablet 100 mg, 2 tab, Route: PO, Drug form: TAB, Q6H, Dosing Weight 104, kg, Start date: 02/28/16 18:00:00 CDT, Duration: 30 day, Stop date: 03/29/16 12:00:00 CDT Notes: Not to exceed 400mg/day. (Same As: Ultram) Start Date: 02/28/16 Stop Date: 02/29/16 Status: DiscontinuedTylenol with Codeine #3 oral tablet 1 tab, PO, Q6H, PRN Pain, # 60 tab, 0 Refill(s) Start Date: 02/27/16 Stop Date: 03/13/16 Status: OrderedTylenol with Codeine #3 oral tablet 1 tab, PO, Q4H, PRN Pain, X 7 day, # 42 tab, 0 Refill(s) Start Date: 02/29/16 Stop Date: 03/07/16 Status: Ordered Results No data available for this section Immunizations Vaccine Date Refusal Reason pneumococcal 23-valent vaccine 02/29/16 Patient R efuses Procedures Procedure Date Related Diagnosis Body Site Lithotripsy Tonsillectomy Social History Social History Type Response Smoking Status Current every day smoker; Ex posure to Tobacco Smoke None; Cigarette Smoking Last 365 D ays Yes; Reg Smoking Cessation Counseling No Assessment and Plan Extracted from: Title: APMS Progress Note Author: Nydia Goodman MD Alverto e: 02/29/16 [facility] we came to examine her for her right sapneous singline shot and right popliteal sciatic block. We will follow up with her via phone at home. Nydia Goodman MD PGY-3, Anesthesiology Addendum by Mickie Barba MD on TEACHING [facility] ADDENDUM: I saw and 03/01/2016 08:53 personally examined this pat ient and discussed the plan of care w ith this resident. I have reviewed e note below and agree with the history, examination findings and the plan of brenda calderón
--- OUTSIDE RECORDS SUMMARY | 2020-03-18 23:31 | XMS REPORT | Summary of Care ---
:1995 Author Organization [facility] Address [address], [place] [address]- Encounter HQ Sally_layla(MIKE) [id number] Date(s): 07/24/16 - 07/24/[address] [address]- [place] Discharge Disposition: Home or Self Care Attending Physician: Luigi Corbin MD Referring Physician: Luigi Corbin MD Vital Signs Most recent to oldest 1 2 3 [Reference Range]: Height 162.56 cm 162.56 cm (07/24/16 7:06 AM) (07/21/16 11:48 AM) Blood Pressure [90-140/60-90 125/71 mmHg 133/69 mmHg 135 /69 mmHg mmHg] (07/24/16 9:18 AM) (07/24/16 8:45 AM) (07/24/16 8:3 0 AM) Respiratory Rate [14-20 BRMIN] 17 BRMIN 11 BRMIN 1 9 BRMIN (07/24/16 9:18 AM) *LOW* (07/24/16 8:30 AM) (07/24/16 8:45 AM) Peripheral Pulse Rate [60-100 96 bpm bpm] (07/24/16 6:59 AM) Weight 105.455 kg 105.455 kg (07/24/16 7:06 AM) (07/21/16 11:48 AM) Body Mass Index 39.91 m2 39.91 m2 (07/24/16 7:06 AM) (07/21/16 11:48 AM) Problem List Condition Effective Dates Status Health Status Informant Ankle fracture(Confirmed) Active Kidney stone(Confirmed) Resolved Morbid obesity(Confirmed) Active Allergies, Adverse Reactions, Alerts Substance Reaction Severity Status NKDA Active Medications ANES acetaminophen 1,000 mg, 2 tab, Route: PO, Drug form: TAB, ONCE, Dosing Weight 105.455, kg, PRN Pain Score 1-3, Start date: 07/24/16 8:17:00 CDT, Duration: 1 doses or times, Stop date: Limited # of times Notes: Max acetaminophen 4000 mg/day (4 gm/day). (Same as: Tylenol Extra Strength) Start Date: 07/24/16 Stop Date: 07/25/16 Status: DiscontinuedANES flumazenil 0.2 mg, 2 mL, Route: IVP, Drug form: INJ, PRN, Dosing Weight 105.455, kg, PRN Benzodiazepine Reversal, Initial dose, Start date: 07/24/16 8:17:00 CDT, Duration: 30 day, Stop date: 08/23/16 8:16:00 CDT Notes: (Same as: Romazicon) Start Date: 07/24/16 Stop Date: 07/25/16 Status: DiscontinuedANES hydrALAZINE 10 mg, 0.5 mL, Route: IVP, Drug form: INJ, Q20Min, Dosing Weight 105.455, kg, PRN Elevated BP, Startdate: 07/24/16 8:17:00 CDT, Duration: 2 doses or times, Stop date: 07/25/16 0:00:00 CDT Notes: (Same as: Apresoline)Push over 5 minutes Start Date: 07/24/16 Stop Date: 07/25/16 Status: CompletedANES HYDROmorphone 0.5 mg, 0.25 mL, Route: IVP, Drug form: INJ, Q5Min, Dosing Weight 105.455, kg, PRN Pain Score 7-10, Start date: 07/24/16 8:17:00 CDT, Duration: 4 doses or times, Stop date: 07/25/16 0:00:00 CDT Notes: (Same as: Dilaudid) Start Date: 07/24/16 Stop Date: 07/25/16 Status: CompletedANES labetalol 10 mg, 2 mL, Route: IVP, Drug form: INJ, Q5Min, Dosing Weight 105.455, kg, PRN Elevated BP, Start date: 07/24/16 8:17:00 CDT, Duration: 5 doses or times, Stop date: 07/25/16 0:00:00 CDT Start Date: 07/24/16 Stop Date: 07/25/16 Status: CompletedANES morphine Sulfate 2 mg, 1 mL, Route: IVP, Drug form: INJ, Q5Min, Dosing Weight 105.455, kg, PRN Pain Score 4-6, Start date: 07/24/16 8:17:00 CDT, Duration: 5 doses or times, Stop date: 07/25/16 0:00:00 CDT Notes: (Same as:MORPhine Sulfate) Start Date: 07/24/16 Stop Date: 07/25/16 Status: CompletedANES naloxone 0.4 mg, 1 mL, Route: IVP, Drug form: INJ, Q2MIN, Dosing Weight 105.455, kg, PRN Narcotic Reversal, Start date: 07/24/16 8:17:00 CDT, Duration: 8 doses or times, Stop date: 07/25/16 0:00:00 CDT Notes: Same as Narcan Start Date: 07/24/16 Stop Date: 07/25/16 Status: CompletedANES ondansetron 4 mg, 2 mL, Route: IVP, Drug form: INJ, ONCE, Dosing Weight 105.455, kg, PRN Nausea & Vomiting, Start date: 07/24/16 8:17:00 CDT Notes: (Same as: Shiv) MEDICATION WASTE Product Size: 4 mgProduct Wasted: ___ mg Start Date: 07/24/16 Stop Date: 07/25/16 Status: DiscontinuedDextrose 50% in Water IV 50 mL, Route: IV, Start date: 07/24/16 10:38:00 CDT, Duration: 30 day, Stop date: 08/23/16 10:37:00 CDT, PRN Blood Glucose Results Start Date: 07/24/16 Stop Date: 07/25/16 Status: DiscontinuedDextrose 50% in Water IV 25 mL, Route: IV, Start date: 07/24/16 10:38:00 CDT, Duration: 30 day, Stop date: 08/23/16 10:37:00 CDT, PRN Blood Glucose Results Start Date: 07/24/16 Stop Date: 07/25/16 Status: Discontinuedinsulin aspart 8 unit, 0.08 mL, Route: SUB-Q, Drug form: SOLN, Sliding Scale, Dosing Weight 105.455, kg, PRN Blood Glucose Results, Start date: 07/24/16 8:17:00 CDT, Duration: 30 day, Stop date: 08/23/16 8:16:00 CDT Notes: Roll in palms of hands gently; Do not shake vigorously. (Same as: [employer])"single patient use only"WASTE: F/P - Black; E - Municipal Trash Bin Stable for 28 days at room temperature.Expires in days from Date Start Date: 07/24/16 Stop Date: 07/25/16 Status: Discontinuedinsulin aspart 6 unit, 0.06 mL, Route: SUB-Q, Drug form: SOLN, Sliding Scale, Dosing Weight 105.455, kg, PRN Blood Glucose Results, Start date: 07/24/16 8:17:00 CDT, Duration: 30 day, Stop date: 08/23/16 8:16:00 CDT Notes: Roll in palms of hands gently; Do not shake vigorously. (Same as: [employer])"single patient use only"WASTE: F/P - Black; E - Municipal Trash Bin Stable for 28 days at room temperature.Expires in days from Date Start Date: 07/24/16 Stop Date: 07/25/16 Status: Discontinuedinsulin aspart 10 unit, 0.1 mL, Route: SUB-Q, Drug form: SOLN, Sliding Scale, Dosing Weight 105.455, kg, PRN Blood Glucose Results, Start date: 07/24/16 8:17:00 CDT, Duration: 30 day, Stop date: 08/23/16 8:16:00 CDT Notes: Roll in palms of hands gently; Do not shake vigorously. (Same as: [employer]LOG)"single patient use only"WASTE: F/P - Black; E - Municipal Trash Bin Stable for 28 days at room temperature.Expires in days from Date Start Date: 07/24/16 Stop Date: 07/25/16 Status: Discontinuedinsulin aspart 2 unit, 0.02 mL, Route: SUB-Q, Drug form: SOLN, Sliding Scale, Dosing Weight 105.455, kg, PRN Blood Glucose Results, Start date: 07/24/16 8:17:00 CDT, Duration: 30 day, Stop date: 08/23/16 8:16:00 CDT Notes: Roll in palms of hands gently; Do not shake vigorously. (Same as: [employer])"single patient use only"WASTE: F/P - Black; E - Municipal Trash Bin Stable for 28 days at room temperature.Expires in days from Date Start Date: 07/24/16 Stop Date: 07/25/16 Status: Discontinuedinsulin aspart 4 unit, 0.04 mL, Route: SUB-Q, Drug form: SOLN, Sliding Scale, Dosing Weight 105.455, kg, PRN Blood Glucose Results, Start date: 07/24/16 8:17:00 CDT, Duration: 30 day, Stop date: 08/23/16 8:16:00 CDT Notes: Roll in palms of hands gently; Do not shake vigorously. (Same as: [employer])"single patient use only"WASTE: F/P - Black; E - Municipal Trash Bin Stable for 28 days at room temperature.Expires in days from Date Start Date: 07/24/16 Stop Date: 07/25/16 Status: DiscontinuedNorco 10/325 oral tablet 1 tab, Route: PO, Drug Form: TAB, Dosing Weight 105.455, kg, ONCE, PRN Pain Score 4-6, Start date: 07/24/16 8:17:00 CDT Notes: Do not exceed 4gm/day of acetaminophen. (Same as: Aynor 325/10) Start Date: 07/24/16 Stop Date: 07/25/16 Status: DiscontinuedNorco 5/325 oral tablet 1 tab, Route: PO, Drug Form: TAB, Dosing Weight 105.455, kg, ONCE, PRN Pain Score 1-3, Start date: 07/24/16 8:17:00 CDT Notes: (Same as: Aynor 325/5) Do not exceed 4gm/day of acetaminophen. Start Date: 07/24/16 Stop Date: 07/25/16 Status: Discontinuedtramadol 50 mg oral tablet 50 mg, PO, Q8H, PRN Pain Score 1-3, # 15 tab, 0 Refill(s) Start Date: 07/24/16 Stop Date: 07/24/16 Status: Completedtramadol 50 mg oral tablet 50 mg, 1 tab, Route: PO, Drug form: TAB, Q8H, Dosing Weight 105.455, kg, PRN Pain Score 1-3, Start date: 07/24/16 7:59:00 CDT, Duration: 30 day, Stop date: 08/23/16 7:58:00 CDT Notes: Not to exceed 400mg/day. (Same As: Ultram) Start Date: 07/24/16 Stop Date: 07/25/16 Status: Discontinuedtramadol 50 mg oral tablet 50 mg, PO, Q8H, PRN Pain Score 1-3, 0 Refill(s) Start Date: 07/24/16 Status: Ordered Results No data available for this section Immunizations Not Given Vaccine Date Status Refusal Reason pneumococcal 23-valent vaccine 02/29/16 Not Given P atient Refuses Procedures Procedure Date Related Diagnosis Body Site Lithotripsy Open reduction1 Tonsillectomy 1right ankle also procedure on rt hip Social History Social History Type Response Smoking Status Current every day smoker; Ex posure to Tobacco Smoke None; Cigarette Smoking Last 365 D ays Yes; Reg Smoking Cessation Counseling No Assessment and Plan No data available for this section
[2020-03-19] MEDS ORDERED: NA CHLORIDE 0.9% 1,000 ML ONE (00:10)
[2020-03-19] MEDS ORDERED: ONDANSETRON 4 MG/2 ML VIAL ONE (00:10)
[2020-03-19 00:25] LABS: Absolute Lymphocytes (CBC) 1.4 K/uL (0.7-4.9); Basophils % 0.9 % (0-1.3); Hematocrit 42.6 % (36.0-45.0); Lymphocytes % 14.3 % (15.3-44.8); MPV 8.9 fL (7.6-11.3); RBC Red Blood Cell Count 5.03 M/uL (3.86-4.86)
[2020-03-19 00:41] LABS: ALT/SGPT 295 U/L (12-78); AST/SGOT 132 U/L (15-37); Albumin 4.2 g/dL (3.4-5.0); Alkaline Phosphatase 217 U/L (45-117); BUN Blood Urea Nitrogen 6 mg/dL (7-18); Bicarbonate 22 mmol/L (21-32); Bilirubin Direct 0.5 mg/dL (0-0.2); Bilirubin Total 1.1 mg/dL (0.2-1.0); Glucose Level 99 mg/dL (74-106); Lipase 76 U/L (73-393); Potassium 4.1 mmol/L (3.5-5.1); Protein, Total 8.5 g/dL (6.4-8.2); Sodium Level 141 mmol/L (136-145)
[2020-03-19 02:47] LABS: Urine Blood 3+ (NEG); Urine Glucose NEGATIVE (NEG); Urine Protein 1+ (NEG); Urine Specific Gravity >1.030 (1.005-1.030); Urine pH 6.5 (5.0-7.0)
[2020-03-19 02:51] LABS: Urine Bacteria 20-50 /HPF (<20); Urine Culture Reflex Order REFLEXED; Urine RBC >50 /HPF (NONE SEEN)
--- NOTE | 2020-03-19 03:11 | EDPHYS ---
Physician Documentation [facility] Name: Donny Arreguin Age: 24 yrs Sex: Female : 1995 Arrival Date: 03/18/2020 Time: 23:31 Bed 13 Private MD: ED Physician Darren Heart HPI: 03/19 01:12 This 24 yrs old Female presents to ER via Ambulatory with complaints of tw4 Abdominal Pain, Nausea/Vomiting. 01:12 The patient presents to the emergency department with nausea, vomiting. Onset: The tw4 symptoms/episode began/occurred yesterday. Possible causes: unknown. The symptoms are aggravated by nothing. The symptoms are alleviated by nothing. Associated signs and symptoms: The patient has no apparent associated signs or symptoms. The patient has not experienced similar symptoms in the past. Historical: - Allergies: 03/18 23:48 No Known Allergies; sg - Home Meds: 23:48 None [Active]; sg - PMHx: 23:48 None; sg - PSHx: 23:48 Hip Sx; sg - Immunization history:: Adult Immunizations up to date. - Social history:: Smoking status: Patient denies any tobacco usage or history of. ROS: 03/19 01:12 Constitutional: Negative for fever, chills, and weight loss, Eyes: Negative for injury, tw4 pain, redness, and discharge, Cardiovascular: Negative for chest pain, palpitations, and edema, Respiratory: Negative for shortness of breath, cough, wheezing, and pleuritic chest pain. Back: Negative for injury and pain, MS/Extremity: Negative for injury and deformity, Skin: Negative for injury, rash, and discoloration, Neuro: Negative for headache, weakness, numbness, tingling, and seizure. Abdomen/GI: Positive for abdominal pain, nausea and vomiting, nausea, vomiting, and diarrhea, nausea, vomiting, Negative for diarrhea, constipation, abdominal cramps, abdominal distension, anorexia, black/tarry stool, rectal pain, rectal bleeding. Exam: 01:12 Constitutional: This is a well developed, well nourished patient who is awake, alert, tw4 and in no acute distress. Head/Face: Normocephalic, atraumatic. Chest/axilla: Normal chest wall appearance and motion. Nontender with no deformity. No lesions are appreciated. Cardiovascular: Regular rate and rhythm with a normal S1 and S2. No gallops, murmurs, or rubs. Normal PMI, no JVD. No pulse deficits. Respiratory: Lungs have equal breath sounds bilaterally, clear to auscultation and percussion. No rales, rhonchi or wheezes noted. No increased work of breathing, no retractions or nasal flaring. Skin: Warm, dry with normal turgor. Normal color with no rashes, no lesions, and no evidence of cellulitis. MS/ Extremity: Pulses equal, no cyanosis. Neurovascular intact. Full, normal range of motion. Neuro: Awake and alert, GCS 15, oriented to person, place, time, and situation. Cranial nerves II-XII grossly intact. Motor strength 5/5 in all extremities. Sensory grossly intact. Cerebellar exam normal. Normal gait. Psych: Awake, alert, with orientation to person, place and time. Behavior, mood, and affect are within normal limits. Vital Signs: 03/18 23:32 BP 142 / 70; Pulse 101; Resp 18; Temp 99.2; Pulse Ox 100% on R/A; Weight 95.25 kg (R); sg Height 5 ft. 6 in. (167.64 cm); Pain 10/10; 03/19 00:30 BP 131 / 95; Pulse 85; Resp 18; Temp 98.1; Pulse Ox 98% ; Pain 4/10; bb3 01:39 BP 131 / 96; Pulse 64; Resp 18; Pulse Ox 96% ; Pain 4/10; bb3 03:30 BP 134 / 83; Pulse 59; Resp 16; Temp 98.2; Pulse Ox 100% on R/A; lp1 03/18 23:32 Body Mass Index 33.89 (95.25 kg, 167.64 cm) sg MDM: 03/18 23:46 Patient medically screened. tw4 03/19 03:06 Differential diagnosis: Nonspecific abd pain, gastritis, cholecystitis, pancreatitis. tw4 Data reviewed: vital signs, nurses notes. Data reviewed: lab test result(s), CBC, hepatic panel, radiologic studies, CT scan. Data interpreted: alarm security or surveillance monitor: Pulse oximetry: Interpretation: normal. Test interpretation: by ED physician or midlevel provider: not applicable. Counseling: I had a detailed discussion with the patient and/or guardian regarding: the historical points, exam findings, and any diagnostic results supporting the discharge/admit diagnosis, lab results, radiology results. Medication response: morphine markedly relieved the patient's pain. Symptoms have improved. Response to treatment: and as a result, I will admit patient. Physician consultation: Keaton Smith MD regarding admission, to the medical/surgical unit. patient's condition, and will see patient in inpatient room. Admission orders: after a detailed discussion of the patient's condition and case, the admit orders are written by me. 03/18 23:50 Order name: Basic Metabolic Panel; Complete Time: 01:07 [facility] 03/19 01:07 Interpretation: Normal except: CL 110; BUN 6. 03/18 23:50 Order name: CBC with Diff; Complete Time: 01:07 [facility] 03/19 01:08 Interpretation: Normal except: RBC 5.03; MCV 84.7; WENCESLAO% 81.3; LYM% 14.3; NEUT A 8.2. 03/18 23:50 Order name: Hepatic Function; Complete Time: 01:07 03/19 01:08 Interpretation: Normal except: AST 132; ALT 295; ALK 217; BILIT 1.1; BILID 0.5; TP 8.5; tw4 GLOB 4.3; A/G 1.0. 03/18 23:50 Order name: Lipase; Complete Time: 01:07 03/19 01:08 Interpretation: Within normal limits: LIP 76. 03/19 01:09 Order name: Urine Microscopic Only; Complete Time: 03:03 [facility] 03/19 03:04 Interpretation: Normal except: URBC >50; SQEPI 5-10; UBACT 20-50. 03/19 01:52 Order name: Hepatitis Panel 03/19 01:10 Order name: CT Abd/Pelvis - IV Contrast Only 03/19 01:53 Order name: Urine Dipstick--Ancillary (enter results); Complete Time: 03:03 03/19 03:06 Interpretation: Normal except: UESTR TRACE; UPROT 1+; UBLD 3+; UKET 1+. 03/19 01:53 Order name: Urine --Ancillary (enter results); Complete Time: 03:04 mw03/19 03:06 Interpretation: Normal except: USPGR >1.030. tw4 03/19 02:53 Order name: Urine Culture EDNJ 03/19 04:06 Order name: US Abdomen Limited tw 03/18 23:50 Order name: IV Saline Lock; Complete Time: 00:20 tw4 03/18 23:50 Order name: Labs collected and sent; Complete Time: 00:20 tw4 03/19 01:09 Order name: Urine Dipstick-Ancillary (obtain specimen); Complete Time: 01:52 tw4 03/19 01:10 Order name: Urine Test (obtain specimen); Complete Time: 01:52 4 03/19 03:17 Order name: CONS Pharmacy Consult [facility] 03/19 03:17 Order name: NPO EDNJ Administered Medications: 03/18 00:25 Drug: Zofran (Ondansetron) 4 mg Route: IVP; Site: right antecubital; bb3 03/19 00:58 Follow up: Response: No adverse reaction; Vomiting decreased bb3 00:25 Drug: NS 0.9% 1000 ml Route: IV; Rate: 1 bolus; Site: right antecubital; bb3 03:30 CANCELLED (Physician Discretion): D5-1/2 NS 1000 ml IV at bolus once; 1000 mL bolus; lp1 followed by 125 mL/hr continuous 03:42 Drug: Zosyn 3.375 grams Route: IVPB; Infused Over: 60 mins; Site: right antecubital; lp1 04:40 Follow up: IV Status: Completed infusion lp1 03:42 Drug: D5-1/2 NS 1000 ml Route: IV; Rate: 100 ml/hr; Site: right antecubital; lp1 04:40 Follow up: IV Status: Infusion continued upon admission lp1 Disposition: 03/19/20 03:10 Hospitalization ordered by Keaton Smith for Inpatient Admission. Preliminary diagnosis is Acute cholecystitis. - Bed requested for Telemetry/MedSurg (Inpatient). - Status is Inpatient Admission. lp1 - Condition is Stable. - Problem is new. - Symptoms have improved. Signatures: Dispatcher [employer] EDNJ Kervin Boyce RN RN sg Pena, Laura, RN RN lp1 Tamiko Lepe RN RN cg Wadley, Terrence, MD MD tw4 Danette Carmen bb3 Corrections: (The following items were deleted from the chart) 03:30 03:26 D5-1/2 NS 1000 ml IV at bolus once; 1000 mL bolus; followed by 125 mL/hr lp1 continuous ordered. tw4 03:35 03:10 Hospitalization Ordered by Keaton Smith MD for Inpatient Admission. Preliminary cg diagnosis is Acute cholecystitis. Bed requested for Telemetry/MedSurg (Inpatient). Status is Inpatient Admission. Condition is Stable. Problem is new. Symptoms have improved. tw4 04:40 03:35 03/19/2020 03:10 Hospitalization Ordered by Keaton Smith MD for Inpatient lp1 Admission. Preliminary diagnosis is Acute cholecystitis. Bed requested for Telemetry/MedSurg (Inpatient). Status is Inpatient Admission. Condition is Stable. Problem is new. Symptoms have improved. cg
--- NOTE | 2020-03-19 03:11 | ER ---
Nurse's Notes [facility] Name: Donny Arreguin Age: 24 yrs Sex: Female : 1995 Arrival Date: 03/18/2020 Time: 23:31 Bed 13 Private MD: Diagnosis: Acute cholecystitis Presentation: 03/18 23:32 Acuity: RACIEL 3 sg 23:32 Chief complaint: Patient states: N/V today that began around 0400, reports having vomit sg that is bright yellow and watery, pt states having pain bilateral upper quadrants, worsening on the right side with pain that radiates to the right side of her upper back, pt states having had a hx of kidney stones but this feels much different. Coronavirus screen: Proceed with normal triage. Ebola Screen: Patient negative for fever greater than or equal to 101.5 degrees Fahrenheit, and additional compatible Ebola Virus Disease symptoms Patient denies exposure to infectious person. Patient denies travel to an Ebola-affected area in the 21 days before illness onset. No symptoms or risks identified at this time. Initial Sepsis Screen: Does the patient meet any 2 criteria? HR > 90 bpm. No. Patient's initial sepsis screen is negative. Does the patient have a suspected source of infection? Yes: Acute abdominal pain. Risk Assessment: Do you want to hurt yourself or someone else? Patient reports no desire to harm self or others. Onset of symptoms was March 18, 2020. Care prior to arrival: None. Transition of care: patient was not received from another setting of care. 23:32 Method Of Arrival: Ambulatory sg Historical: - Allergies: 23:48 No Known Allergies; sg - Home Meds: 23:48 None [Active]; sg - PMHx: 23:48 None; sg - PSHx: 23:48 Hip Sx; sg - Immunization history:: Adult Immunizations up to date. - Social history:: Smoking status: Patient denies any tobacco usage or history of. Screenin/19 01:52 Abuse screen: Denies threats or abuse. Denies injuries from another. Nutritional lp1 screening: No deficits noted. Tuberculosis screening: No symptoms or risk factors identified. Fall Risk None identified. Assessment: 00:00 General: Appears distressed, uncomfortable, Behavior is calm, cooperative, Reports bb3 feeling ill for > 3 days. Pain: Complains of pain in right upper quadrant and left upper quadrant Pain currently is 4 out of 10 on a pain scale. Quality of pain is described as aching, Pain began pain started about 2 wks ago per pt report. GI: Reports upper abdominal pain, nausea, vomiting. 01:40 Reassessment: Patient appears in no apparent distress at this time. Patient and/or bb3 family updated on plan of care and expected duration. Pain level reassessed. Patient is alert, oriented x 3, equal unlabored respirations, skin warm/dry/pink. Patient states feeling better. Patient states symptoms have improved. General: Appears in no apparent distress. comfortable, Behavior is calm, cooperative, appropriate for age. Pain: Complains of pain in left upper quadrant and right upper quadrant Pain currently is 4 out of 10 on a pain scale. 02:00 Reassessment: Patient appears in no apparent distress at this time. Patient is alert, lp1 oriented x 3, equal unlabored respirations, skin warm/dry/pink. Patient resting in bed, requesting water, aware of waiting for CT results;. 03:19 Reassessment: Provider at bedside to discuss results with patient; patient demonstrates lp1 understanding; Informed of remaining NPO. Vital Signs: 03/18 23:32 BP 142 / 70; Pulse 101; Resp 18; Temp 99.2; Pulse Ox 100% on R/A; Weight 95.25 kg (R); sg Height 5 ft. 6 in. (167.64 cm); Pain 10/10; 03/19 00:30 BP 131 / 95; Pulse 85; Resp 18; Temp 98.1; Pulse Ox 98% ; Pain 4/10; bb3 01:39 BP 131 / 96; Pulse 64; Resp 18; Pulse Ox 96% ; Pain 4/10; bb3 03:30 BP 134 / 83; Pulse 59; Resp 16; Temp 98.2; Pulse Ox 100% on R/A; lp1 03/18 23:32 Body Mass Index 33.89 (95.25 kg, 167.64 cm) sg ED Course: 03/18 23:31 Patient arrived in ED. cl3 23:32 Arm band placed on. sg 23:33 Triage completed. sg 23:46 Darren Heart MD is Attending Physician. tw4 03/19 00:10 Missed attempt(s): 20 gauge in left antecubital area. Bleeding controlled, band aid sg applied, catheter tip intact. 00:14 Initial lab(s) drawn, by me, sent to lab. Inserted saline lock: 22 gauge in right sg antecubital area, using aseptic technique. Blood collected. 01:52 Natalie Lee, KAR is Primary Nurse. lp1 01:52 Report received from KAR Samaniego. lp1 01:52 Patient has correct armband on for positive identification. lp1 02:33 CT Abd/Pelvis - IV Contrast Only In Process Unspecified. EDMS 02:36 No provider procedures requiring assistance completed. lp1 03:10 Keaton Smith MD is Hospitalizing Provider. tw4 03:47 Patient admitted, IV remains in place. lp1 Administered Medications: 03/18 00:25 Drug: Zofran (Ondansetron) 4 mg Route: IVP; Site: right antecubital; bb3 03/19 00:58 Follow up: Response: No adverse reaction; Vomiting decreased bb3 00:25 Drug: NS 0.9% 1000 ml Route: IV; Rate: 1 bolus; Site: right antecubital; bb3 03:30 CANCELLED (Physician Discretion): D5-1/2 NS 1000 ml IV at bolus once; 1000 mL bolus; lp1 followed by 125 mL/hr continuous 03:42 Drug: Zosyn 3.375 grams Route: IVPB; Infused Over: 60 mins; Site: right antecubital; lp1 04:40 Follow up: IV Status: Completed infusion lp1 03:42 Drug: D5-1/2 NS 1000 ml Route: IV; Rate: 100 ml/hr; Site: right antecubital; lp1 04:40 Follow up: IV Status: Infusion continued upon admission lp1 Outcome: 03:10 Decision to Hospitalize by Provider. tw4 03:47 Condition: stable lp1 03:47 Instructed on the need for admit. 04:39 Admitted to Med/surg via wheelchair, room 213, with chart, Report called to KAR Samaniego lp1 04:40 Patient left the ED. lp1 Signatures: Dispatcher [employer] EDMS Kervin Boyce RN RN sg Pena, Laura, RN RN lp1 Darren Heart MD MD tw4 Mick Saunders cl3 Danette Carmen bb3 Corrections: (The following items were deleted from the chart) 00:18 0518 23:32 BP 142 / 70; Pulse 101bpm; Resp 18bpm; Pulse Ox 100% RA; Temp 98.2F; 95.25 sg kg Reported; Height 5 ft. 6 in.; BMI: 33.8; Pain 10/10; sg
[2020-03-19] MEDS ORDERED: PIPER/TAZO/NS 3.375gm 3.375 GM/100 ML BAG ONE (03:19)
[2020-03-19] MEDS ORDERED: D5 0.45 NS 1,000 ML IV ONE (03:37)
[2020-03-19] MEDS: MORPHINE 4 MG/ML SYR IV PRN ×2 (05:26→12:29)
[2020-03-19] MEDS: NA CHLORIDE 0.9% 1,000 ML IV SCH ×3 (05:27→23:40)
[2020-03-19 07:30] VITALS: BMI 57.9
--- NOTE | 2020-03-19 08:14 | RAD REPORT ---
EXAM DESCRIPTION: US - Abdomen Exam Limited - 03/19/2020 8:00 am CLINICAL HISTORY: Abdominal pain. COMPARISON: March 19 CAT scan FINDINGS: Several gallstones. The gallbladder is distended. The gallbladder wall is thickened. . Common bile duct measures 8 millimeters. IMPRESSION: Cholelithiasis with gallbladder distention. Thickened gallbladder wall may indicate chol ecystitis Mildly dilated common bile duct
--- NOTE | 2020-03-19 09:28 | P.CNS ---
Date of Consult: 03/19/20 Reason for Consult: Medical Management Requesting Physician: Keaton Simth Primary Care Provider: HENRIETTA Garcia Chief Complaint: Abdominal pain History of Present Illness: 24-year-old female presented with right upper quadrant abdominal pain. I was consulted for medical management by surgery. Patient has been reporting right upper quadrant pain with nausea and vomiting over the last 2 weeks. Symptoms have been getting worse. Patient seen in the ER and found to have acute cholecystitis with elevated liver function and noted dilated common bile duct. Patient was admitted for further evaluation and treatment. When I saw the patient in the room, pain significantly improved. Patient on IV antibiotic therapy and IV fluids. Patient denies any major medical problems. Surgery wanted me to evaluate to see if patient will require transfer to higher level care center for ERCP or if GI can be called to further address. I was able to get in contact with GI. He is willing to see patient and consider a ERCP. Allergies No Known Allergies Allergy (Unverified 02/14/16 03:17) Home medications list reviewed: Yes Home Medications: NK [No Home Meds] 03/19/20 - Past Medical/Surgical History Diabetic: No -: Tobacco abuse -: Obesity, BMI 58 -: Tonsillectomy Psychosocial/ Personal History: Patient lives at home. - Family History Father Family History: Reviewed- Non-Contributory - Social History Smoking Status: Heavy Tobacco smoker (>10 cigarettes/day) Counseled patient to stop smoking for: less than 10 minutes Smoking therapy provided: Yes Patient receptive to therapy: Yes Alcohol use: Yes CD- Drugs: No Caffeine use: Yes Place of Residence: Home Review of Systems General: Fever, Chills, As per HPI Eyes: Unremarkable ENT: Unremarkable Respiratory: Unremarkable Cardiovascular: Unremarkable Gastrointestinal: Nausea, Vomiting, Abdominal Pain, As per HPI Musculoskeletal: Unremarkable Integumentary: Unremarkable Neurological: Unremarkable Lymphatics: Unremarkable Physical Examination Temp Pulse Resp BP Pulse Ox 97.7 F 57 16 138/78 97 03/19/20 08:00 03/19/20 08:00 03/19/20 08:00 03/19/20 08:00 03/19/20 08:00 General: Alert, In no apparent distress, Oriented x3, Cooperative HEENT: Atraumatic, Normocephalic, Other (Dry mucous membranes) Respiratory: Clear to auscultation bilaterally, Normal air movement Cardiovascular: Normal pulses, Regular rate/rhythm Gastrointestinal: Normal bowel sounds, Soft and benign, Non-distended, No masses, No rebound, No guarding, Tenderness (Mild pain to the right upper quadrant) Musculoskeletal: No erythema, No tenderness, No warmth Integumentary: No tenderness/swelling, No erythema, No warmth, No cyanosis Neurological: Normal speech, Normal strength at 5/5 x4 extr, Normal tone, Normal affect Laboratory Data (last 24 hrs) 03/19/20 00:14: WBC 10.1, Hgb 14.1, Hct 42.6, Plt Count 286 03/19/20 00:14: Sodium 141, Potassium 4.1, BUN 6 L, Creatinine 0.62, Glucose 99, Total Bilirubin 1.1 H, AST 132 H, ALT 295 H, Alkaline Phosphatase 217 H, Lipase 76 Conclusions/Impression: Impression: Right upper quadrant abdominal pain with elevated liver function secondary to acute cholecystitis with cholelithiasis and noted dilated common bile duct Tobacco abuse Obesity, BMI 58 Plan: Right upper quadrant abdominal pain with elevated liver function secondary to acute cholecystitis with cholelithiasis and noted dilated common bile duct: Case discussed at length with surgery. I was able to get in contact with GI who willing to see the patient. GI recommends MRCP at this time. Patient will likely require ERCP as well after MRCP. Surgery will be planned after a ERCP done. Await further recommendations by GI and surgery. Tobacco abuse: Cessation addressed. Will provide nicotine patch. Obesity, BMI 58: Will address lifestyle modification. Time Spent Managing Pts care (In Minutes): 55
[2020-03-19] MEDS: NICOTINE 21 MG/PAT TD SCH (10:06)
[2020-03-19] MEDS: PIPER/TAZO/NS 3.375gm 3.375 GM/100 ML BAG IVPB SCH ×2 (10:06→17:08)
--- NOTE | 2020-03-19 10:29 | RAD REPORT ---
EXAM DESCRIPTION: CT - Abdomen Pelvis W Contrast - 03/19/2020 7:06 am CLINICAL HISTORY: The patient is 24 years old and is Female; ABD PAIN TECHNIQUE: Axial computed tomography images of the abdomen and pelvis with intravenous contrast. S agittal and coronal reformatted images were created and reviewed. This CT exam was performed using one or more of the following dose reduction techniques: automated exposure control, adjustment of t he mA and/or kV according to patient size, and/or use of iterative reconstruction technique. COMPARISON: No relevant prior studies available. FINDINGS: LUNG BASES: Unremarkable. No mass. No consolidation. ABDOMEN: LIVER: Unremarkable. No mass. GALLBLADDER AND BILE DUCTS: The gallbladder is distended moderate biliary dilatation is present. No calcified gallstones are seen. Suggestion of mild gallbladder wall thickening/pericholecystic flui d is noted. PANCREAS: No ductal dilation. No mass. SPLEEN: Unremarkable. ADRENALS: Unremarkable. No mass. KIDNEYS AND URETERS: A small right renal cysts are present, the largest measures 0.9 cm. The kidney s enhance symmetrically. No obstructing renal or ureteral calculus is seen. No hydronephrosis or hydr oureter. No perinephric fluid or stranding. STOMACH AND BOWEL: The stomach is moderately fluid-filled. The small bowel is decompressed. Mini mal stool is noted throughout the colon. There is no mucosal thickening or evidence of bowel obstruct ion. PELVIS: APPENDIX: The appendix is normal in caliber without surrounding inflammation. BLADDER: The bladder is not well distended. REPRODUCTIVE: Unremarkable as visualized. ABDOMEN and PELVIS: INTRAPERITONEAL SPACE: Unremarkable. No free air. No significant fluid collection. BONES/JOINTS: No acute fracture. SOFT TISSUES: The soft tissues are normal. VASCULATURE: Unremarkable. No abdominal aortic aneurysm. LYMPH NODES: Unremarkable. No enlarged lymph nodes. IMPRESSION: Gallbladder distention with biliary dilatation and suggestion of mild pericholecystic fl uid. If there is clinical concern for acute gallbladder pathology, findings could be further evaluate d with ultrasound or HIDA scan. Electronically signed by: Sushila Linda MD 03/19/2020 2:46 AM CDT Due to temporary technical issues with the PACS/Fluency reporting system, reports are being signed by the in house radiologist as a courtesy to ensure prompt reporting. The interpreting radiologist is f ully responsible for the content of the report.
--- NOTE | 2020-03-19 12:08 | RAD REPORT ---
EXAM DESCRIPTION: MRICholangiogram03/19/2020 11:52 am CLINICAL HISTORY: Abdominal pain COMPARISON: March 19 ultrasound TECHNIQUE: Magnetic resonance cholangiogram was performed.3D MIP reconstruction performed FINDINGS: Multiple gallstones. The gallbladder is distended. Gallbladder wall is thickened. Mild dilatation of the biliary tree. A filling defect within the common bile duct is not seen Pancreatic duct is normal caliber IMPRESSION: Cholelithiasis. Gallbladder distention. Thickened gallbladder wall may indicate cholecys titis Mild dilatation of the common bile duct. A stone within the duct is not visualized
[2020-03-19] MEDS: ONDANSETRON 4 MG/2 ML VIAL IV PRN ×2 (13:33→18:56)
[2020-03-19 13:57] LABS: Protime INR 1.16
[2020-03-19] MEDS: FENTANYL CITR 100 MCG/2 ML IV PRN ×3 (13:58→18:56)
[2020-03-19] MEDS ORDERED: FENTANYL CITR 100 MCG/2 ML IV ONE (16:00)
[2020-03-19] MEDS: HYDROCODONE/APAP 7.5/325 MG TAB PO PRN ×2 (17:07→23:48)
[2020-03-19 20:17] LABS: Barbiturates NEGATIVE (NEGATIVE); Benzodiazepines NEGATIVE (NEGATIVE); Cocaine NEGATIVE (NEGATIVE); METHAMPHETAM POSITIVE (NEGATIVE); Methadone NEGATIVE (NEGATIVE); Opiates POSITIVE (NEGATIVE); Phencyclidine NEGATIVE (NEGATIVE); THC Cannibis POSITIVE (NEGATIVE)
[2020-03-20] MEDS: PIPER/TAZO/NS 3.375gm 3.375 GM/100 ML BAG IVPB SCH ×3 (00:04→16:21)
[2020-03-20] MEDS: ONDANSETRON 4 MG/2 ML VIAL IV PRN (00:22)
[2020-03-20] MEDS: MORPHINE 4 MG/ML SYR IV PRN ×5 (02:54→23:38)
--- NOTE | 2020-03-20 03:08 | HP ---
Date of Admission: 03/19/2020 Brief History Of Present Illness: Patient is a female who presents to the hospital with ri ght upper quadrant pain beginning approximately 3 days ago. She states that the pain began in the ep igastrium, right upper quadrant, associated with eating fatty greasy meal. She has had this been goi ng on for several weeks, for at least 2-3 weeks and perhaps even longer, but noted pain, and her inte rmittent episodes have been starting to get more frequent, and as such, she came to the emergency [facility] with the above-stated complaints. She states that since she has been here at the hospital, she has had significant improvement in her symptoms, but continues to have intermittent episodes of epigastr ic and right upper quadrant abdominal pain, but not as bad as when seen in the ER. She has been give n pain medication, which has given her some improvement, but has been incompletely treating her sympt oms at this point. She has had no more nausea, vomiting, but continues to have the epigastric and ri ght upper quadrant abdominal pain with occasional radiation to the left upper quadrant. None to her back. No other symptoms associated. Past Medical History: Obesity with a BMI of 58. Past Surgical History: She has had a tonsillectomy. Medications: She denies any home medications. Allergies: SHE HAS NO KNOWN DRUG ALLERGIES. Social History: She lives at home. She admits to tobacco abuse. She admits to marijuana. She admi ts to a history of approximately a month ago of multiple drugs including cocaine, methamphetamines, P CP, Xanax, ecstasy, etc. She drinks alcohol recreationally as well. Review of Systems: A 10-point review of systems other than HPI, denies. Physical Examination: Vital Signs: At the time of my examination, her BMI is 58. She is 4 feet 6 inches, 240 pounds. Her vital signs were a temperature of 97.7, pulse 57, respiratory rate 16, blood pressure 138/78, pulse ox is 97% on room air. General: She is awake, alert, and oriented. Psychiatric: She is appropriate, conversive. HEENT: She is normocephalic. Her sclerae are anicteric. Her mucous membranes are moist. Oropharyn x is clear. Neck: Supple. No JVD. Chest: Normal expansion and excursion. Cardiovascular: Regular rate and rhythm. Pulmonary: Clear to auscultation bilaterally. Abdomen: Soft with mild epigastric and right upper quadrant tenderness to palpation. Negative Solange y sign. No rebound. No guarding. No focal peritonitis. Abdomen is obese generally. Extremities: No clubbing, cyanosis, or edema. Skin: Warm and dry. Laboratory Data: Reveals a white blood cell count of 10.1, hemoglobin is 14.1, hematocrit of 42.6, p latelet count is 286, her neutrophils are 81%. PT , INR 1.1, PTT is 36.3. Sodium 141, pot assium 4.1, chloride 110, carbon dioxide 22, BUN 6, creatinine 0.6, glucose is 99, total bilirubin 1. 1, direct bilirubin 0.5, AST is 132, ALT 295, alkaline phosphatase of 217. Her lipase is 76. Her UA showed greater than 50 red blood cells, it showed squamous cells, bacteria 20-50, 1+ total protein. test was negative. She has a hepatitis panel currently pending. She had imaging performe d, which included an abdomen and pelvis CT read at approximately 1 in the morning as gallbladder dist ention with biliary dilatation suggestive of mild pericholecystic fluid with a concern for acute gall bladder pathology, findings to be further evaluated with ultrasound and HIDA. She had a followup ult rasound at 4:06 in the morning officially read as cholelithiasis with gallbladder distention, thicken ed gallbladder wall may indicate cholecystitis, mildly dilated common bile duct measuring 8 mm. She had an MRCP following which officially showed a cholelithiasis, gallbladder distention, thickened gal lbladder wall may indicate cholecystitis, mild dilatation of common bile duct stone within the duct i s not visualized. Assessment And Plan: This is a 24-year-old female who comes in with signs and symptoms of acute calc ulous cholecystitis and dilatation of her bile duct. 1.IV fluid hydration. 2.Antibiotic coverage with Zosyn 3.375. 3.Pain control. 4.Medical management. 5.Patient will require Gastroenterology consultation to discuss the dilatation of the bile duct. 6.I have explained the risks, benefits, and alternatives of laparoscopic, possible open cholecystect jose including but not limited to bleeding, infection, damage to surrounding tissues, injury to bile d ucts, intestines, need for further operation and procedures, patient may require a cholangiogram. Ad ditionally, patient would like to wait at this point, and as stated, she wants to try clear liquid di et as her symptoms continued to improve and would prefer to try nonoperative measures at this point a nd come back to get this done as an outpatient. I recommended surgery at this time currently today. However, she is not interested in pursuing surgery at this time, and therefore, I will allow her radha ar liquid diet today and re-evaluate her in the morning and recheck her labs. If her symptoms contin ued to improve, she may be a nonoperative management candidate, but I still recommend cholecystectomy . However, her and her father would like to wait in the interim. GEREMIAS/MARYELLEN Voice ID: [id number]
[2020-03-20 06:09] LABS: Absolute Lymphocytes (CBC) 1.9 K/uL (0.7-4.9); Basophils % 0.3 % (0-1.3); Hematocrit 37.5 % (36.0-45.0); MPV 9.1 fL (7.6-11.3); RBC Red Blood Cell Count 4.37 M/uL (3.86-4.86)
[2020-03-20] MEDS: FENTANYL CITR 100 MCG/2 ML IV PRN ×4 (06:43→20:39)
[2020-03-20 07:26] LABS: ALT/SGPT 136 U/L (12-78); AST/SGOT 33 U/L (15-37); Albumin 2.8 g/dL (3.4-5.0); Alkaline Phosphatase 137 U/L (45-117); BUN Blood Urea Nitrogen 10 mg/dL (7-18); Bicarbonate 19 mmol/L (21-32); Glucose Level 74 mg/dL (74-106); Lipase 4683 U/L (73-393); Potassium 3.8 mmol/L (3.5-5.1); Protein, Total 6.1 g/dL (6.4-8.2); Sodium Level 137 mmol/L (136-145)
[2020-03-20 08:29] LABS: Blood Morphology Comment NOT SEEN (NOT SEEN); Platelet Estimate ADEQ; Urine White Blood Cell Casts OK
[2020-03-20] MEDS: NICOTINE 21 MG/PAT TD SCH (09:00)
[2020-03-20] MEDS: NA CHLORIDE 0.9% 1,000 ML IV SCH ×4 (11:09→21:16)
[2020-03-20] MEDS: HYDROCODONE/APAP 7.5/325 MG TAB PO PRN ×2 (14:16→21:44)
--- NOTE | 2020-03-20 15:12 | P.PN ---
Subjective Date of Service: 03/20/20 Primary Care Provider: HENRIETTA Garcia Chief Complaint: Abdominal pain Subjective: Other (Patient reports slight improvement. Less pain noted. Less nausea noted.) Physical Examination - Vital Signs Temperature: 98.8 F Blood Pressure: 156/88 Pulse: 82 Respirations: 18 Pulse Ox (%): 96 - Physical Exam General: Alert, Cooperative HEENT: Atraumatic Neck: Supple Respiratory: Clear to auscultation bilaterally, Normal air movement Cardiovascular: Normal pulses, Regular rate/rhythm Gastrointestinal: Hypoactive, Soft and benign, Tenderness (Less pain to the epigastric and right upper quadrant region.) Integumentary: No tenderness/swelling, No erythema, No warmth, No cyanosis Neurological: Normal speech, Normal strength at 5/5 x4 extr, Normal tone, Normal affect - Studies Medications List Reviewed: Yes Assessment & Plan Discharge Plan: Home Plan to discharge in: 72 Hours Physician Review Additional Text: Impression: Right upper quadrant abdominal pain with elevated liver function secondary to acute gallstone pancreatitis and noted dilated common bile duct Tobacco abuse Urine drug screen positive for amphetamines, opiates and marijuana Obesity, BMI 58 Plan: Right upper quadrant abdominal pain with elevated liver function secondary to acute gallstone pancreatitis and noted dilated common bile duct: Case discussed at length with surgery. Lipase levels noted. Liver function tests slightly improved. Overall patient has improved. Will continue to monitor closely. Surgery wants to wait on surgical intervention. Possible surgery tomorrow. Will discuss further with surgery. Patient may require a ERCP as well. Will discuss with GI. Continue IV fluids. Continue current plan of care. Will follow along with surgery. Tobacco abuse: Cessation addressed. Will provide nicotine patch. Urine drug screen positive for amphetamines, opiates and marijuana: This has been reported by patient to this surgeon. Encourage cessation. Obesity, BMI 58: Will address lifestyle modification. Time Spent Managing Pts Care (In Minutes): 55
--- NOTE | 2020-03-20 16:15 | P.PN ---
Subjective Date of Service: 03/20/20 Primary Care Provider: HENRIETTA Garcia Chief Complaint: Abdominal pain Subjective: No new changes (Patient continues to have abdominal pain, epigastric with radiation to LLQ) Physical Examination - Vital Signs Temperature: 98.8 F Blood Pressure: 156/88 Pulse: 82 Respirations: 18 Pulse Ox (%): 96 - Physical Exam General: Alert, In no apparent distress, Cooperative HEENT: Mucous membr. moist/pink Gastrointestinal: Other (soft, obese, + epigastric TTP, minimal RUQ TTP, negative murphys) - Studies Medications List Reviewed: Yes Assessment And Plan - Current Problems (Diagnosis) (1) Gallstone pancreatitis Current Visit: Yes Status: Acute (2) Acute gallstone pancreatitis Current Visit: Yes Status: Acute Plan: - Continue pain management with current regime - increase IV fluids to 125cc/hr - serial exams - incentive spirometry - clear liquid diet - will plan cholecytectomy when pancreatitis resolves Physician Review Additional Text: Impression: Right upper quadrant abdominal pain with elevated liver function secondary to acute gallstone pancreatitis and noted dilated common bile duct Tobacco abuse Urine drug screen positive for amphetamines, opiates and marijuana Obesity, BMI 58 Plan: Right upper quadrant abdominal pain with elevated liver function secondary to acute gallstone pancreatitis and noted dilated common bile duct: Case discussed at length with surgery. Lipase levels noted. Liver function tests slightly improved. Overall patient has improved. Will continue to monitor closely. Surgery wants to wait on surgical intervention. Possible surgery tomorrow. Will discuss further with surgery. Patient may require a ERCP as well. Will discuss with GI. Continue IV fluids. Continue current plan of care. Will follow along with surgery. Tobacco abuse: Cessation addressed. Will provide nicotine patch. Urine drug screen positive for amphetamines, opiates and marijuana: This has been reported by patient to this surgeon. Encourage cessation. Obesity, BMI 58: Will address lifestyle modification.
--- NOTE | 2020-03-20 16:28 | P.PN ---
Subjective Date of Service: 03/20/20 Primary Care Provider: HENRIETTA Garcia Chief Complaint: Abdominal pain Review of Systems 10-point ROS is otherwise unremarkable Gastrointestinal: Abdominal Pain Physical Examination - Vital Signs Temperature: 98.8 F Blood Pressure: 156/88 Pulse: 82 Respirations: 18 Pulse Ox (%): 96 - Studies Medications List Reviewed: Yes Assessment And Plan - Current Problems (Diagnosis) (1) Cholelithiasis Current Visit: Yes Status: Acute (2) Cholecystitis Current Visit: Yes Status: Acute (3) Abnormal transaminases Current Visit: Yes Status: Acute (4) Abnormal ultrasound of abdomen Current Visit: Yes Status: Acute (5) Gallstone pancreatitis Current Visit: Yes Status: Acute - Plan REC: 1) IVFs 2) IV antibiotics 3) monitor labs 4) NPO 5) lap sharri as per surgery Physician Review Additional Text: Impression: Right upper quadrant abdominal pain with elevated liver function secondary to acute gallstone pancreatitis and noted dilated common bile duct Tobacco abuse Urine drug screen positive for amphetamines, opiates and marijuana Obesity, BMI 58 Plan: Right upper quadrant abdominal pain with elevated liver function secondary to acute gallstone pancreatitis and noted dilated common bile duct: Case discussed at length with surgery. Lipase levels noted. Liver function tests slightly improved. Overall patient has improved. Will continue to monitor closely. Surgery wants to wait on surgical intervention. Possible surgery tomorrow. Will discuss further with surgery. Patient may require a ERCP as well. Will discuss with GI. Continue IV fluids. Continue current plan of care. Will follow along with surgery. Tobacco abuse: Cessation addressed. Will provide nicotine patch. Urine drug screen positive for amphetamines, opiates and marijuana: This has been reported by patient to this surgeon. Encourage cessation. Obesity, BMI 58: Will address lifestyle modification.
[2020-03-21] MEDS: PIPER/TAZO/NS 3.375gm 3.375 GM/100 ML BAG IVPB SCH ×3 (00:29→16:33)
[2020-03-21] MEDS: FENTANYL CITR 100 MCG/2 ML IV PRN ×4 (01:25→16:33)
[2020-03-21] MEDS: NA CHLORIDE 0.9% 1,000 ML IV SCH ×4 (02:57→19:53)
[2020-03-21] MEDS: MORPHINE 4 MG/ML SYR IV PRN ×4 (03:57→18:33)
[2020-03-21 05:41] LABS: Absolute Lymphocytes (CBC) 1.3 K/uL (0.7-4.9); Basophils % 0.3 % (0-1.3); Lymphocytes % 10.3 % (15.3-44.8); MPV 9.1 fL (7.6-11.3); RBC Red Blood Cell Count 4.03 M/uL (3.86-4.86)
[2020-03-21 06:08] LABS: ALT/SGPT 88 U/L (12-78); AST/SGOT 11 U/L (15-37); Albumin 2.7 g/dL (3.4-5.0); Alkaline Phosphatase 120 U/L (45-117); BUN Blood Urea Nitrogen 4 mg/dL (7-18); Bicarbonate 24 mmol/L (21-32); Bilirubin Direct 0.5 mg/dL (0-0.2); Bilirubin Total 1.3 mg/dL (0.2-1.0); Glucose Level 87 mg/dL (74-106); Lipase 903 U/L (73-393); Potassium 3.4 mmol/L (3.5-5.1); Sodium Level 140 mmol/L (136-145)
[2020-03-21] MEDS: NICOTINE 21 MG/PAT TD SCH (08:47)
--- NOTE | 2020-03-21 11:11 | P.PN ---
Subjective Date of Service: 03/21/20 Primary Care Provider: HENRIETTA Garcia Chief Complaint: Abdominal pain Subjective: Improving (Pain has significantly improved. Less nausea noted.) Physical Examination - Vital Signs Temperature: 97 F Blood Pressure: 154/92 Pulse: 89 Respirations: 18 Pulse Ox (%): 100 - Physical Exam General: Alert, In no apparent distress, Oriented x3, Cooperative HEENT: Atraumatic Neck: Supple Respiratory: Clear to auscultation bilaterally, Normal air movement Cardiovascular: Normal pulses, Regular rate/rhythm Gastrointestinal: Normal bowel sounds, Tenderness (Less pain to the right upper quadrant) Integumentary: No tenderness/swelling, No erythema, No warmth, No cyanosis Neurological: Normal speech, Normal strength at 5/5 x4 extr, Normal tone, Normal affect - Studies Microbiology Data (last 24 hrs): 03/19/20 01:45 Clean Catch Urine [place] Count - Final >100,000 CFU/ML. 03/19/20 01:45 Clean Catch Urine - Final MIXED MICHELLE. Medications List Reviewed: Yes Assessment & Plan Discharge Plan: Home Plan to discharge in: 72 Hours Physician Review Additional Text: Impression: Right upper quadrant abdominal pain with elevated liver function secondary to acute gallstone pancreatitis and noted dilated common bile duct Tobacco abuse Elevated blood pressure Urine drug screen positive for amphetamines, opiates and marijuana Obesity, BMI 58 Plan: Right upper quadrant abdominal pain with elevated liver function secondary to acute gallstone pancreatitis and noted dilated common bile duct: Lipase improved. Liver function tests also improved. Case discussed with surgery. Surgery is planned but surgery we will discuss with GI about the possibility of doing ERCP first. Will reach out to GI to further discuss. Encourage ambulation. Continue IV antibiotic therapy and IV fluids. Tobacco abuse: Cessation addressed. Continue to provide nicotine patch. Urine drug screen positive for amphetamines, opiates and marijuana: This has been reported by patient to this surgeon. Encourage cessation. Elevated blood pressure: Possible underlying hypertension. Will monitor closely. This may be related to her pain. Will consider medication if this persists or increases. Obesity, BMI 58: Will address lifestyle modification. Time Spent Managing Pts Care (In Minutes): 55
[2020-03-21] MEDS: KCL 20 MEQ/100 mL IVPB 20 MEQ/100 ML BAG IV SCH ×2 (11:28→13:34)
--- NOTE | 2020-03-21 15:12 | P.PN ---
Subjective Date of Service: 03/21/20 Primary Care Provider: HENRIETTA Garcia Chief Complaint: Abdominal pain Subjective: Improving (Patient has decreased abdominal pain, but continues to be primarily epigastric. tolerated clears.) Physical Examination - Vital Signs Temperature: 98.3 F Blood Pressure: 144/85 Pulse: 86 Respirations: 18 Pulse Ox (%): 100 - Physical Exam General: Alert, In no apparent distress, Cooperative HEENT: Mucous membr. moist/pink Respiratory: Clear to auscultation bilaterally Cardiovascular: Regular rate/rhythm Gastrointestinal: Other (soft, obese, mild epigastric TTP, ND, minimal RUQ TTP, Negative murpys) - Studies Microbiology Data (last 24 hrs): 03/19/20 01:45 Clean Catch Urine [place] Count - Final >100,000 CFU/ML. 03/19/20 01:45 Clean Catch Urine - Final MIXED MICHELLE. Medications List Reviewed: Yes Assessment And Plan - Current Problems (Diagnosis) (1) Gallstone pancreatitis Current Visit: Yes Status: Acute (2) Acute gallstone pancreatitis Current Visit: Yes Status: Acute Plan: - Continue pain management with current regime - IV fluids to 125cc/hr - serial exams - incentive spirometry - clear liquid diet - will plan cholecytectomy when pancreatitis resolves - continue to trend LFT / Lipase Physician Review Additional Text: Impression: Right upper quadrant abdominal pain with elevated liver function secondary to acute gallstone pancreatitis and noted dilated common bile duct Tobacco abuse Elevated blood pressure Urine drug screen positive for amphetamines, opiates and marijuana Obesity, BMI 58 Plan: Right upper quadrant abdominal pain with elevated liver function secondary to acute gallstone pancreatitis and noted dilated common bile duct: Lipase improved. Liver function tests also improved. Case discussed with surgery. Surgery is planned but surgery we will discuss with GI about the possibility of doing ERCP first. Will reach out to GI to further discuss. Encourage amb ulation. Continue IV antibiotic therapy and IV fluids. Tobacco abuse: Cessation addressed. Continue to provide nicotine patch. Urine drug screen positive for amphetamines, opiates and marijuana: This has been reported by patient to this surgeon. Encourage cessation. Elevated blood pressure: Possible underlying hypertension. Will monitor closely. This may be related to her pain. Will consider medication if this persists or increases. Obesity, BMI 58: Will address lifestyle modification.
[2020-03-21] MEDS: HYDROCODONE/APAP 7.5/325 MG TAB PO PRN (20:42)
[2020-03-21] MEDS ORDERED: POTASSIUM CL SA 10 MEQ TAB PO ONE (22:36)
[2020-03-22] MEDS: NA CHLORIDE 0.9% 1,000 ML IV SCH ×5 (00:20→21:50)
[2020-03-22] MEDS: PIPER/TAZO/NS 3.375gm 3.375 GM/100 ML BAG IVPB SCH ×3 (00:20→17:00)
[2020-03-22] MEDS: MORPHINE 4 MG/ML SYR IV PRN (00:36)
[2020-03-22 03:41] LABS: HBsAG Nonreactive (Nonreactive)
[2020-03-22] MEDS: FENTANYL CITR 100 MCG/2 ML IV PRN ×4 (04:46→21:50)
[2020-03-22 05:22] LABS: Absolute Lymphocytes (CBC) 1.9 K/uL (0.7-4.9); Basophils % 0.7 % (0-1.3); Hematocrit 31.5 % (36.0-45.0); Lymphocytes % 17.3 % (15.3-44.8); MPV 9.7 fL (7.6-11.3); RBC Red Blood Cell Count 3.76 M/uL (3.86-4.86)
[2020-03-22 05:40] LABS: ALT/SGPT 60 U/L (12-78); AST/SGOT 9 U/L (15-37); Albumin 2.7 g/dL (3.4-5.0); Alkaline Phosphatase 105 U/L (45-117); BUN Blood Urea Nitrogen 2 mg/dL (7-18); Bicarbonate 24 mmol/L (21-32); Glucose Level 98 mg/dL (74-106); Lipase 286 U/L (73-393); Magnesium 1.8 mg/dL (1.8-2.4); Potassium 3.5 mmol/L (3.5-5.1); Protein, Total 6.1 g/dL (6.4-8.2); Sodium Level 140 mmol/L (136-145)
[2020-03-22] MEDS ORDERED: MAGNESIUM SULFATE 1 gm IVPB 1 GM/100 ML BAG IV ONE (07:00)
--- NOTE | 2020-03-22 07:50 | P.PN ---
Subjective Date of Service: 03/22/20 Primary Care Provider: HENRIETTA Garcia Chief Complaint: Abdominal pain Subjective: Improving (Patient continues to have epigastric and LUQ TTP, with mild RUQ TTP) Physical Examination - Vital Signs Temperature: 98.7 F Blood Pressure: 133/76 Pulse: 80 Respirations: 19 Pulse Ox (%): 97 - Physical Exam General: Alert, In no apparent distress, Cooperative HEENT: Mucous membr. moist/pink Gastrointestinal: Other (soft, obese, + epigastric, RUQ, LUQ TTP, ND, negative murphys) - Studies Microbiology Data (last 24 hrs): 03/19/20 01:45 Clean Catch Urine [place] Count - Final >100,000 CFU/ML. 03/19/20 01:45 Clean Catch Urine - Final MIXED MICHELLE. Medications List Reviewed: Yes Assessment And Plan - Current Problems (Diagnosis) (1) Gallstone pancreatitis Current Visit: Yes Status: Acute (2) Acute gallstone pancreatitis Current Visit: Yes Status: Acute Plan: - Continue pain management with current regime - IV fluids to 125cc/hr - serial exams - incentive spirometry - clear liquid diet - NPO after midnight - will plan cholecytectomy when pancreatitis resolves - plan for surgery in AM - continue to trend LFT / Lipase Physician Review Additional Text: Impression: Right upper quadrant abdominal pain with elevated liver function secondary to acute gallstone pancreatitis and noted dilated common bile duct Tobacco abuse Elevated blood pressure Urine drug screen positive for amphetamines, opiates and marijuana Obesity, BMI 58 Plan: Right upper quadrant abdominal pain with elevated liver function secondary to acute gallstone pancreatitis and noted dilated common bile duct: Lipase improved. Liver function tests also improved. Case discussed with surgery. Surgery is planned but surgery we will discuss with GI about the possibility of doing ERCP first. Will reach out to GI to further discuss. Encourage ambulation. Continue IV antibiotic therapy and IV fluids. Tobacco abuse: Cessation addressed. Continue to provide nicotine patch. Urine drug screen positive for amphetamines, opiates and marijuana: This has been reported by patient to this surgeon. Encourage cessation. Elevated blood pressure: Possible underlying hypertension. Will monitor closely. This may be related to her pain. Will consider medication if this persists or increases. Obesity, BMI 58: Will address lifestyle modification.
[2020-03-22] MEDS ORDERED: POTASSIUM CL SA 10 MEQ TAB PO ONE (08:00)
[2020-03-22] MEDS: NICOTINE 21 MG/PAT TD SCH (09:00)
[2020-03-22] MEDS: HYDROCODONE/APAP 7.5/325 MG TAB PO PRN ×2 (10:01→18:30)
--- NOTE | 2020-03-22 17:01 | P.PN ---
Subjective Date of Service: 03/22/20 Primary Care Provider: HENRIETTA Garcia Chief Complaint: Abdominal pain Subjective: Doing well Physical Examination - Vital Signs Temperature: 97.7 F Blood Pressure: 146/88 Pulse: 77 Respirations: 15 Pulse Ox (%): 96 - Physical Exam General: Alert, Cooperative HEENT: Atraumatic Neck: Supple Respiratory: Clear to auscultation bilaterally, Normal air movement Cardiovascular: Normal pulses, Regular rate/rhythm Gastrointestinal: Tenderness (Less pain to the abdomen) Neurological: Normal speech, Normal strength at 5/5 x4 extr, Normal tone, Normal affect - Studies Medications List Reviewed: Yes Assessment & Plan Discharge Plan: Home Plan to discharge in: 48 Hours Physician Review Additional Text: Impression: Right upper quadrant abdominal pain with elevated liver function secondary to acute gallstone pancreatitis and noted dilated common bile duct Tobacco abuse Elevated blood pressure Urine drug screen positive for amphetamines, opiates and marijuana Obesity, BMI 58 Plan: Right upper quadrant abdominal pain with elevated liver function secondary to acute gallstone pancreatitis and noted dilated common bile duct: Lipase improved. Liver function tests also improved. Case discussed with surgery today. Surgery plans intervention tomorrow. Await findings. Tobacco abuse: Cessation addressed. Continue to provide nicotine patch. Urine drug screen positive for amphetamines, opiates and marijuana: This has been reported by patient to this surgeon. Encourage cessation. Elevated blood pressure: Possible underlying hypertension. Will monitor closely. This may be related to her pain. Will consider medication if this persists or increases. Obesity, BMI 58: Will address lifestyle modification. Time Spent Managing Pts Care (In Minutes): 55
[2020-03-23] MEDS: HYDROCODONE/APAP 7.5/325 MG TAB PO PRN ×3 (00:41→23:47)
[2020-03-23] MEDS: PIPER/TAZO/NS 3.375gm 3.375 GM/100 ML BAG IVPB SCH ×3 (00:42→16:16)
[2020-03-23] MEDS: NA CHLORIDE 0.9% 1,000 ML IV SCH ×5 (05:13→21:49)
[2020-03-23 06:31] LABS: ALT/SGPT 45 U/L (12-78); AST/SGOT 6 U/L (15-37); Albumin 2.7 g/dL (3.4-5.0); Alkaline Phosphatase 101 U/L (45-117); BUN Blood Urea Nitrogen 2 mg/dL (7-18); Bicarbonate 26 mmol/L (21-32); Bilirubin Direct 0.4 mg/dL (0-0.2); Bilirubin Total 0.9 mg/dL (0.2-1.0); Glucose Level 82 mg/dL (74-106); Lipase 103 U/L (73-393); Phosphorus 3.1 mg/dL (2.5-4.9); Potassium 3.7 mmol/L (3.5-5.1); Protein, Total 6.1 g/dL (6.4-8.2); Sodium Level 142 mmol/L (136-145)
[2020-03-23] MEDS: NICOTINE 21 MG/PAT TD SCH (07:46)
[2020-03-23] MEDS ORDERED: KCL 20 MEQ/100 mL IVPB 20 MEQ/100 ML BAG IV SCH (09:00)
[2020-03-23] MEDS ORDERED: BUPIVACA 0.25%/EPI 0.0005% MDV 50 ML VIAL ONE (10:10)
[2020-03-23] MEDS ORDERED: propofoL 200 MG/20 ML VIAL IV ONE (10:13)
[2020-03-23] MEDS ORDERED: FENTANYL CITR 250 MCG/5 ML ONE (10:13)
[2020-03-23] MEDS ORDERED: LIDOCAINE 2% MPF 5 ML VIAL ONE (10:13)
[2020-03-23] MEDS ORDERED: ROCURONIUM 50 MG/5 ML VIAL IV ONE (10:13)
[2020-03-23] MEDS ORDERED: KETOROLAC 30 MG/ML INJ ONE (10:47)
[2020-03-23] MEDS ORDERED: dexAMETHasone 10 MG/ML VIAL ONE (10:47)
[2020-03-23] MEDS ORDERED: ONDANSETRON 4 MG/2 ML VIAL ONE ×2 (10:48→13:13)
[2020-03-23] MEDS ORDERED: GLYCOPYRROLATE 0.2 MG/ML SYR ONE (11:06)
[2020-03-23] MEDS ORDERED: NEOSTIGMINE 1 MG/ML -5 ML ONE (11:11)
--- NOTE | 2020-03-23 12:28 | P.OP ---
Preoperative diagnosis: Gallstone Pancreatitis Postoperative diagnosis: Gallstone Pancreatitis Primary procedure: Laparoscopic Cholecystectomy Anesthesia: GETA + Local Estimated blood loss: <10cc Specimen: Gallbladder Findings: short cystic duct, long extrahepatic course of CBD, GB on CBD Complications: None Drain(s): VARINDER drain Transferred to: Recovery Room Condition: Good
[2020-03-23] MEDS: MEPERIDINE HCL 25 MG/0.5 ML ONE ×2 (13:06→13:11)
[2020-03-23] MEDS: HYDROMORPHONE HCL 1 MG/ML INJ ONE ×2 (13:09→13:15)
--- NOTE | 2020-03-23 13:52 | P.PN ---
Subjective Date of Service: 03/23/20 Primary Care Provider: HENRIETTA Garcia Chief Complaint: Abdominal pain Subjective: Doing well Physical Examination - Vital Signs Temperature: 97.4 F Blood Pressure: 123/74 Pulse: 62 Respirations: 16 Pulse Ox (%): 96 - Physical Exam General: Alert, Cooperative HEENT: Atraumatic Neck: Supple Respiratory: Clear to auscultation bilaterally, Normal air movement Cardiovascular: Normal pulses, Regular rate/rhythm Gastrointestinal: Normal bowel sounds, Non-distended, Tenderness (Pain stable at this time) Neurological: Normal speech, Normal strength at 5/5 x4 extr, Normal tone - Studies Medications List Reviewed: Yes Assessment & Plan Discharge Plan: Home Plan to discharge in: 24 Hours Physician Review Additional Text: Impression: Right upper quadrant abdominal pain with elevated liver function secondary to acute gallstone pancreatitis and noted dilated common bile duct Tobacco abuse Elevated blood pressure Urine drug screen positive for amphetamines, opiates and marijuana Obesity, BMI 58 Plan: Right upper quadrant abdominal pain with elevated liver function secondary to acute gallstone pancreatitis and noted dilated common bile duct: Patient is to have surgical intervention today. Await findings by surgery. Tobacco abuse: Cessation addressed. Continue to provide nicotine patch. Urine drug screen positive for amphetamines, opiates and marijuana: This has been reported by patient to this surgeon. Encourage cessation. Elevated blood pressure: Possible underlying hypertension. Will monitor closely. This may be related to her pain. Will consider medication if this persists or increases. Obesity, BMI 58: Will address lifestyle modification. Time Spent Managing Pts Care (In Minutes): 55
--- NOTE | 2020-03-23 14:22 | OP ---
Date of Procedure: 03/23/2020 Surgeon: Joy Smith MD, Preoperative Diagnosis: Acute gallstone pancreatitis. Postoperative Diagnosis: Acute gallstone pancreatitis. Procedure Performed: Laparoscopic cholecystectomy. Anesthesia: General endotracheal plus local with 0.5% Marcaine with epinephrine. Estimated Blood Loss: Less than 10 mL. Specimens: Gallbladder. Findings: 1.Very short cystic duct. 2.Long extrahepatic course of CBD. 3.Gallbladder was firmly adherent to CBD on medial aspect. 4.Short cystic artery. Complications: None. Drains: 10-Turkmen flat VARINDER drain. Condition: Transferred to recovery room in good condition. Procedure In Detail: After informed consent was obtained, patient was brought to the operating room, prepped and draped in the usual sterile fashion. After adequate anesthesia was achieved, a supraumb ilical area was incised. 5 mm 0-degree optical trocar was introduced in the abdomen without evidence of complication. Insufflation was obtained to 15 mmHg at this time. There was no injury to vital s tructures upon entry in the abdomen. Three additional trocars were chosen, 1 in the epigastrium, 2 i n the right upper quadrant, all similar, anesthetized and sharply incised and all 5 mm trocars were i ntroduced in the abdomen under direct visualization without evidence of complication. The umbilical trocar was then up-sized to a 12 mm under direct visualization without evidence of complication. The gallbladder was grasped, elevated, and placed towards the patient's right shoulder. Decompression n eedle was brought in as the gallbladder was grossly distended and there was a stone impacted in the n jillian, making manipulation quite difficult. Decompression was minimally successful on multiple passes of a decompression needle. The gallbladder remained difficult a handle due to the very large size an d floppy nature. I suspect the multiple gallstones likely were the etiology of the difficult manipul ation. I dissected down near the Carlene pouch and the common bile duct was easily visualized on th e anterior surface with a very short cystic duct stump. In addition, the gallbladder was firmly adhe rent on the medial aspect to the long extrahepatic course of the CBD. The gallbladder was gently dis sected off the CBD using blunt dissection off the medial aspect and the peritoneal was taken down wit h electrocautery. Prior to this, the cystic duct common duct junction was visualized and there was a very short cystic duct and this was dissected with careful meticulous blunt dissection and suction. After the cystic duct was visualized all the peritoneal attachments posteriorly were taken down unti l the structures were skeletonized showing only 2 structures entering the gallbladder, these were flori ntified in the cystic duct and cystic artery. Both were found to be quite short with very short take offs, as such the Endoclips were brought onto the field and I inspected the posterior aspects which w ere found to be quite skeletonized as well. As such, double titanium clips were placed on the proxim al side and singly on the distal side of both the cystic duct and cystic artery. The LigaSure had be en opened previously and as such I ligated the cystic artery beyond the proximal clips with the LigaS ure device and the cystic duct was ligated using the Endo patricia. At this point, the gallbladder was carefully dissected off the CBD, which again was found to have a quite long extrahepatic course and I used a predominantly blunt dissection with minimal low electrocautery on the electrocautery setting Bovie to dissect and remove the gallbladder off the CBD with meticulous dissection. After this was mobilized safely, I returned to using electrocautery at 35 to 40 off the majority of the hepatic bed. Minimal bleeding was encountered, was easily controlled with electrocautery or LigaSure device on t he peritoneal side. No significant intraabdominal blood loss was appreciated. The gallbladder was t hen removed from the hepatic fossa, placed in EndoCatch bag and removed from the umbilical trocar. T he area was re-insufflated at this time and irrigated copiously. The clips were found to be in good position and there was no bleeding, no addition hemostatic measures required. I irrigated the abdome n multiple times until completely clear and suctioned it out and saw no evidence of bleeding, no evid ence of bile leakage and continued to irrigate suction under desufflation pressure, but no leakage wa s appreciated. However, I decided to place a 10-Turkmen flat VARINDER drain in the subhepatic space along t he clips as they were quite short in this area, but had good apposition and there was no bile leakage and no bleeding as described. The VARINDER drain was placed in the space and brought out through the late ral-most trocar and secured to the skin. The umbilical trocar was then closed after placing the bhavani ent in neutral position and closed using a Francesco-Ileana suture passer with 0-Vicryl in an interrup joy fashion with multiple passes until there was good apposition of the tissue. At this point, the r emaining trocars were used to inspect the abdomen 1 last time, suctioned out the remaining of the eff luent, and desufflated the abdomen under direct visualization. All skin incisions were then copiousl y irrigated. After trocars removed and closed with interrupted asia and sterile dressing was plac ed over top. Patient tolerated the procedure well with no evidence of complication, transferred to P ACU in good condition. All counts were correct at the end of the case. GEREMIAS/MARYELLEN Voice ID: [id number] Report ID: [id number]
--- NOTE | 2020-03-23 15:57 | P.PN ---
Subjective Date of Service: 03/23/20 Primary Care Provider: HENRIETTA Garcia Chief Complaint: Abdominal pain, cholecystitis, cholelithiasis, abnormal LFTs Subjective: Improving (S/p lap sharri today and feeling better, except mild post- op pain. Labs have been normalizing over the past few days.) Review of Systems 10-point ROS is otherwise unremarkable Gastrointestinal: Abdominal Pain (post-op pain) Physical Examination - Vital Signs Temperature: 97.4 F Blood Pressure: 123/74 Pulse: 62 Respirations: 16 Pulse Ox (%): 96 - Physical Exam General: Alert, In no apparent distress, Oriented x3, Cooperative HEENT: Atraumatic, Normocephalic, PERRLA, EOMI Neck: Supple Respiratory: Normal air movement Cardiovascular: Normal pulses Gastrointestinal: No rebound, No guarding, Tenderness (post-op pain) Neurological: Normal speech, Normal strength at 5/5 x4 extr - Studies Medications List Reviewed: Yes Assessment And Plan - Current Problems (Diagnosis) (1) Cholelithiasis Current Visit: Yes Status: Acute (2) Cholecystitis Current Visit: Yes Status: Acute (3) Abnormal transaminases Current Visit: Yes Status: Acute (4) Abnormal ultrasound of abdomen Current Visit: Yes Status: Acute (5) Gallstone pancreatitis Current Visit: Yes Status: Acute - Plan REC: 1) continue IVFs & IV antibiotics 2) monitor labs 3) diet as per surgery Physician Review Additional Text: Impression: Right upper quadrant abdominal pain with elevated liver function secondary to acute gallstone pancreatitis and noted dilated common bile duct Tobacco abuse Elevated blood pressure Urine drug screen positive for amphetamines, opiates and marijuana Obesity, BMI 58 Plan: Right upper quadrant abdominal pain with elevated liver function secondary to acute gallstone pancreatitis and noted dilated common bile duct: Patient is to have surgical intervention today. Await findings by surgery. Tobacco abuse: Cessation addressed. Continue to provide nicotine patch. Urine drug screen positive for amphetamines, opiates and marijuana: This has been reported by patient to this surgeon. Encourage cessation. Elevated blood pressure: Possible underlying hypertension. Will monitor closely. This may be related to her pain. Will consider medication if this persists or increases. Obesity, BMI 58: Will address lifestyle modification.
[2020-03-23] MEDS: FENTANYL CITR 100 MCG/2 ML IV PRN ×2 (16:15→21:16)
--- NOTE | 2020-03-23 20:40 | CON ---
Date of Consultation: 03/19/2020 Reason For Consultation: Cholelithiasis, cholecystitis, and right upper quadrant midepigastric, left upper quadrant pain. History Of Present Illness: Patient is a 24-year-old white female without significant past medical h istory, who presented to the hospital with right upper quadrant midepigastric pain predominantly. Massiel calderón says it was approximately 8/10, now is down to 5/10. Associated with nausea, vomiting, fevers, chi lls. Pain also extends to the left upper quadrant, but much less there. CT scan of the abdomen and pelvis revealed a distended gallbladder with some biliary dilatation and mild pericholecystic fluid. Abdominal ultrasound revealed cholelithiasis and distended gallbladder with thickened gallbladder wa ll consistent with cholecystitis as well and mild dilatation of the common bile duct. MRCP, which we ordered after being called to consult on the case revealed cholelithiasis, gallbladder distention, g allbladder wall thickening, mild dilatation of the common bile duct with no stones seen within the bi le duct. Total bilirubin was 1.1, direct bilirubin 0.5, AST 132, ALT of 295, alkaline phosphatase 21 7, albumin 4.2, and lipase normal at 76. Patient states she feels better. Pain down from 8/10 to 5/ 10 in hospital on IV fluids, IV antibiotics and p.r.n. pain medicines and antiemetics. She has no na usea, vomiting now and states her fevers and chills seem to be improved as well, largely resolved. Past Medical History: Significant for tonsillectomy in the past and obesity, BMI of approximately 58 . Home Medications: None. Allergies: NKDA. Social History: She is single. No children. She smokes about half pack per day of cigarettes. Has occasional tobacco. Also admits to marijuana by chart review. She admits to about a month ago mult iple drugs including cocaine, methamphetamine, PCP, Xanax, ecstasy, etc., by chart review. Occasiona l alcohol as stated. Family History: Father with hypertension. Mother with back pain. Review of Systems: Patient has right upper quadrant midepigastric pain greater than left upper quadrant pain associated with nausea, vomiting, fevers, chills. She denies any melena, hematochezia, masses, coffee-grounds, hematuria, dysuria, polydipsia, chest pain, shortness of breath, seizure, syncope, lower extremity ed irina, muscle aches, joint aches, backaches. She does have some altered mood with medicatio ns including decreased mood and some anxiety and she is self-treating with multiple drugs it appears. Physical Examination: Vital Signs: Patient is 5 feet 6 inches, 240 pounds, BMI of 38.8 kg/sq m. She has a temperature of 97.9 degrees Fahrenheit, pulse 58, respirations 16, blood pressure 139/70, O2 saturation 98% to 100% on room air. General: She is obese and lying in bed, in no acute distress. HEENT: Normocephalic, atraumatic. Anicteric. Pupils equal, round, and reactive to light. Extraocu lar muscles intact. Oropharynx is clear. Neck: Supple. No masses. Respirations: Clear to auscultation bilaterally. Cardiac: Regular rate and rhythm. Gastrointestinal: Positive bowel sounds. Soft. Some tenderness in the right upper quadrant midepig astric area though mild, but no rebound or guarding. No hepatosplenomegaly. Extremities: No clubbing, cyanosis, or edema. 2+ pulses. Neuro: Alert and oriented x3. Grossly nonfocal. 5/5 motor strength. Laboratory Data: Patient has a white count today of 10.1, hemoglobin 14.1, hematocrit 42.6, MCV of 8 5, platelet count 286, polys of 81%, lymphocytes 14%, monocytes 3%. PT of 13.6, INR of 1.2, PTT 36.3 . Sodium 141, potassium 4.1, chloride of 110, bicarb 22, BUN of 6, creatinine of 0.6, glucose 99, ca lcium 9.0, total bilirubin of 1.1, direct bilirubin 0.5, AST of 132, ALT of 295, alkaline phosphatase 217, total protein 8.5, albumin 4.2, lipase 76. UA revealed 1+ ketones, 3+ blood, trace leukocyte e sterase, greater than 50 rbc's, 5 to 10 squamous epithelial cells, somewhat dirty urine, 20 to 50 whi te bacteria, 1+ protein. Negative test. Tox screen positive for opiates, amphetamines, TH C, marijuana screen. She also had negative hepatitis A, B, C serologies. Imaging: CT scan of abdomen and pelvis as stated above revealed thickened gallbladder with biliary d ilatation and mild pericholecystic fluid. Ultrasound of abdomen revealed cholelithiasis with gallbla dder distention, thickened gallbladder wall, mildly dilated common bile duct. MRCP which we ordered after the revealed cholelithiasis with gallbladder distention, gallbladder wall thickened, mild distention of the common bile duct, but there are no stones seen in the biliary tree. Impression: Cholelithiasis and cholecystitis. Right upper quadrant midepigastric greater than left upper quadrant, 8/10 down to 5/10 now with nausea, vomiting, fevers, chills. CT scan of abdomen and pelvis revealed distended gallbladder with biliary tree dilatation and mild pericholecystic fluid. U ltrasound then revealed cholelithiasis with gallbladder distention, thickened gallbladder wall, and m ildly dilated common bile duct. MRCP revealed cholelithiasis, distended gallbladder with gallbladder wall thickening and mild dilatation of common bile duct once again, but no stones seen in duct. Mat irubin is 1.1, direct bilirubin 0.5, AST of 132, ALT of 295, alkaline phosphatase 217, albumin 4.2, l ipase 76. Recommendation: 1.Lap sharri as per Surgery. No need for ERCP at this time. 2.IV fluids, IV antibiotics. 3.P.r.n. pain medicines and antiemetics. 4.Keep patient n.p.o. 5.Check PT/PTT, which has been done, which are within normal limits. KENZIE/STEFANL Voice ID: [id number] Report ID: [id number]
[2020-03-24] MEDS: PIPER/TAZO/NS 3.375gm 3.375 GM/100 ML BAG IVPB SCH ×2 (00:02→09:11)
[2020-03-24 01:05] VITALS: O2SAT 92
[2020-03-24] MEDS: FENTANYL CITR 100 MCG/2 ML IV PRN ×2 (02:14→07:03)
[2020-03-24] MEDS: NA CHLORIDE 0.9% 1,000 ML IV SCH (03:29)
[2020-03-24] MEDS: HYDROCODONE/APAP 7.5/325 MG TAB PO PRN ×2 (05:21→11:26)
[2020-03-24 05:57] LABS: Absolute Lymphocytes (CBC) 0.8 K/uL (0.7-4.9); Basophils % 0.2 % (0-1.3); Hematocrit 31.9 % (36.0-45.0); Lymphocytes % 7.5 % (15.3-44.8); MPV 9.8 fL (7.6-11.3)
[2020-03-24 06:09] LABS: ALT/SGPT 44 U/L (12-78); AST/SGOT 12 U/L (15-37); Albumin 2.8 g/dL (3.4-5.0); Alkaline Phosphatase 104 U/L (45-117); BUN Blood Urea Nitrogen 4 mg/dL (7-18); Bicarbonate 24 mmol/L (21-32); Bilirubin Total 0.5 mg/dL (0.2-1.0); Glucose Level 123 mg/dL (74-106); Lipase 52 U/L (73-393); Protein, Total 6.6 g/dL (6.4-8.2); Sodium Level 141 mmol/L (136-145)
[2020-03-24 07:11] LABS: Blood Morphology Comment NOT SEEN (NOT SEEN); Platelet Estimate ADEQ; Urine White Blood Cell Casts OK
[2020-03-24] MEDS: NICOTINE 21 MG/PAT TD SCH (09:00)
[2020-03-24 09:57] VITALS: TEMP 98
--- NOTE | 2020-03-24 12:04 | P.PN ---
Subjective Date of Service: 03/24/20 Primary Care Provider: HENRIETTA Garcia Chief Complaint: Abdominal pain, cholecystitis, cholelithiasis, abnormal LFTs Subjective: Improving, Doing well Physical Examination - Vital Signs Temperature: 98.0 F Blood Pressure: 147/83 Pulse: 53 Respirations: 15 Pulse Ox (%): 94 - Physical Exam General: Alert, In no apparent distress, Cooperative HEENT: Atraumatic Neck: Supple Respiratory: Clear to auscultation bilaterally, Normal air movement Cardiovascular: Normal pulses, Regular rate/rhythm Gastrointestinal: Normal bowel sounds, No masses, No rebound, No guarding, Other (appropriate tenderness) Neurological: Normal speech, Normal strength at 5/5 x4 extr, Normal tone, Normal affect - Studies Medications List Reviewed: Yes Assessment & Plan Discharge Plan: Home Plan to discharge in: 24 Hours Physician Review Additional Text: Impression: Right upper quadrant abdominal pain with elevated liver function secondary to acute gallstone pancreatitis and noted dilated common bile duct Tobacco abuse Elevated blood pressure Urine drug screen positive for amphetamines, opiates and marijuana Obesity, BMI 58 Plan: Right upper quadrant abdominal pain with elevated liver function secondary to acute gallstone pancreatitis and noted dilated common bile duct: Spoke to Surgery. He will DC home today. Tobacco abuse: Cessation addressed. Continue to provide nicotine patch. Urine drug screen positive for amphetamines, opiates and marijuana: This has been reported by patient to this surgeon. Encourage cessation. Elevated blood pressure: Possible underlying hypertension. Will monitor closely. This may be related to her pain. Will consider medication if this persists or increases. Obesity, BMI 58: Will address lifestyle modification. Time Spent Managing Pts Care (In Minutes): 30
[2020-03-24 12:15] VITALS: BP 148/90
--- NOTE | 2020-03-24 12:18 | P.PN ---
Subjective Date of Service: 03/24/20 Primary Care Provider: HENRIETTA Garcia Chief Complaint: Abdominal pain, cholecystitis, cholelithiasis, abnormal LFTs Subjective: Improving (Feeling better with improved labs. She is to be d/c'd home today.) Physical Examination - Vital Signs Temperature: 98.0 F Blood Pressure: 148/90 Pulse: 53 Respirations: 15 Pulse Ox (%): 94 - Studies Medications List Reviewed: Yes Assessment And Plan - Current Problems (Diagnosis) (1) Cholelithiasis Current Visit: Yes Status: Acute (2) Cholecystitis Current Visit: Yes Status: Acute (3) Abnormal transaminases Current Visit: Yes Status: Acute (4) Abnormal ultrasound of abdomen Current Visit: Yes Status: Acute (5) Gallstone pancreatitis Current Visit: Yes Status: Acute - Plan REC: 1) diet as per surgery 2) GI clinic f/u prn Physician Review Additional Text: Impression: Right upper quadrant abdominal pain with elevated liver function secondary to acute gallstone pancreatitis and noted dilated common bile duct Tobacco abuse Elevated blood pressure Urine drug screen positive for amphetamines, opiates and marijuana Obesity, BMI 58 Plan: Right upper quadrant abdominal pain with elevated liver function secondary to acute gallstone pancreatitis and noted dilated common bile duct: Spoke to Surgery. He will DC home today. Tobacco abuse: Cessation addressed. Continue to provide nicotine patch. Urine drug screen positive for amphetamines, opiates and marijuana: This has been reported by patient to this surgeon. Encourage cessation. Elevated blood pressure: Possible underlying hypertension. Will monitor closely. This may be related to her pain. Will consider medication if this persists or increases. Obesity, BMI 58: Will address lifestyle modification.
--- NOTE | 2020-03-24 13:43 | P.DS ---
Admission Date: 03/19/20 Discharge Date: 03/24/20 Primary Care Provider: HENRIETTA Garcia Disposition: ROUTINE DISCHARGE Discharge Condition: GOOD Reason for Admission: Abdominal pain, cholecystitis, cholelithiasis, abnormal LFTs Consultations: Dr. Olvera - hospitalist Procedures: Laparoscopic Cholecystectomy - Problems (1) Gallstone pancreatitis Status: Acute (2) Acute gallstone pancreatitis Status: Acute Brief History of Present Illness: Patient is a 24 year old woman who was admitted with abdominal pain concerning for cholecystitis. Hospital Course: Patient admitted with cholelithiasis / cholecystitis with enlargement of her common bile duct, imaging was performed, and she was noted to have pancreatitis - patient was treated for acute gallstone pancreatitis, ultimately had a laparoscopic cholecystecomy, where a VARINDER drain was placed. She did well post op day #1, her VARINDER was serosanguanous, non-bilious, and her hepatic function panel showed improvement. She was improved clinically, and deemed appropriate for discharge, tolerating diet, ambulatory. Vital Signs/Physical Exam: Temp Pulse Resp BP Pulse Ox 98.0 F 53 15 148/90 H 94 03/24/20 12:18 03/24/20 12:18 03/24/20 12:18 03/24/20 12:18 03/24/20 12:18 General: Alert, In no apparent distress, Cooperative HEENT: Normocephalic Respiratory: Clear to auscultation bilaterally Cardiovascular: Normal pulses, Regular rate/rhythm Gastrointestinal: Other (soft, mild appropriate TTP, ND, incisions clean with asia in place, VARINDER in RUQ was serosanguanous, non-bilious. ) Musculoskeletal: No clubbing, No swelling Integumentary: No rashes Neurological: Normal speech Laboratory Data at Discharge: WBC 10.8 K/uL (4.3-10.9) 03/24/20 05:17 Hgb 10.5 g/dL (12.0-15.0) L 03/24/20 05:17 Hct 31.9 % (36.0-45.0) L 03/24/20 05:17 Plt Count 265 K/uL (152-406) D 03/24/20 05:17 PT 13.6 SECONDS (9.5-12.5) H 03/19/20 13:35 INR 1.16 03/19/20 13:35 APTT 36.3 SECONDS (24.3-36.9) 03/19/20 13:35 Sodium 141 mmol/L (136-145) 03/24/20 05:17 Potassium 4.0 mmol/L (3.5-5.1) 03/24/20 05:17 BUN 4 mg/dL (7-18) L 03/24/20 05:17 Creatinine 0.48 mg/dL (0.55-1.3) L 03/24/20 05:17 Glucose 123 mg/dL (74-106) H 03/24/20 05:17 Phosphorus 3.1 mg/dL (2.5-4.9) 03/23/20 05:26 Magnesium 2.0 mg/dL (1.8-2.4) 03/23/20 05:26 Total Bilirubin 0.5 mg/dL (0.2-1.0) 03/24/20 05:17 AST 12 U/L (15-37) L 03/24/20 05:17 ALT 44 U/L (12-78) 03/24/20 05:17 Alkaline Phosphatase 104 U/L (45-117) 03/24/20 05:17 Lipase 52 U/L (73-393) L 03/24/20 05:17 Home Medications: NK [No Home Meds] 03/19/20 Diet: Cooper Activity: No lifting more than 10 lbs Followup: Keatno Smith MD [ACTIVE - CAN ADMIT] - 1 Week (call to make an apointment. )
== END 2020-03-24 12:54 | disposition home or self-care (01) | DRG 417 ==
LOC: ER 23:28 → ERHOLD 03-19 03:18 → 2ND 03-19 04:31
PROVIDERS: ADMIT Surgery; ATTEND Surgery
PROC: 0W9G40Z Drainage of Peritoneal Cavity with Drainage Device, Percutaneous Endoscopic Approach (ICD-10-PCS; 2020-03-23)
PROC: 0FT44ZZ Resection of Gallbladder, Percutaneous Endoscopic Approach (ICD-10-PCS; principal; 2020-03-23 10:00)
DX: K80.00 Calculus of gallbladder with acute cholecystitis without obstruction (principal); K85.10 Biliary acute pancreatitis without necrosis or infection; Z68.43 Body mass index [BMI] 50.0-59.9, adult; F17.210 Nicotine dependence, cigarettes, uncomplicated; I10 Essential (primary) hypertension; E66.9 Obesity, unspecified; K83.8 Other specified diseases of biliary tract; R74.0 Nonspecific elevation of levels of transaminase and lactic acid dehydrogenase [LDH]; R93.5 Abnormal findings on diagnostic imaging of other abdominal regions, including retroperitoneum; R79.89 Other specified abnormal findings of blood chemistry
CPT/HCPCS: 36415; 74177; 74181; 76705; 80048; 80053; 80074; 80076; 80307; 81003; 81015; 81025; 82248; 83690; 83735; 84100; 84132; 85025; 85610; 85730; 87086; 87088; 88304; 96365; 96375; 99285; J1100; J1170; J2175; J2405; J2543; J2704; J2710; J3010; J3475; J7030; J7799; Q9967

== ENCOUNTER 2021-08-11 10:12 | Emergency (ER) | payer BC ==
--- NOTE | 2021-08-11 10:43 | ER ---
Nurse's Notes [facility] Name: Donny Arreguin Age: 25 yrs Sex: Female : 1995 Arrival Date: 08/11/2021 Time: 10:16 Bed 11 Private MD: Diagnosis: Unspecified otitis externa, right ear Presentation: 08/11 10:18 Chief complaint: Patient states: "I think I've had an ear infection for about 4 days aa5 now and my ears started draining about 2 days ago". Pt also reports sore throat and chills. Coronavirus screen: chills, sore throat. Ebola Screen: Patient negative for fever greater than or equal to 101.5 degrees Fahrenheit, and additional compatible Ebola Virus Disease symptoms. Initial Sepsis Screen: Does the patient meet any 2 criteria? No. Patient's initial sepsis screen is negative. Does the patient have a suspected source of infection? No. Patient's initial sepsis screen is negative. Risk Assessment: Do you want to hurt yourself or someone else? Patient reports no desire to harm self or others. Onset of symptoms was August 2021. 10:18 Method Of Arrival: Ambulatory aa5 10:18 Acuity: RACIEL 4 aa5 Historical: - Allergies: 10:20 No Known Allergies; aa5 - PMHx: 10:20 None; aa5 - PSHx: 10:20 None; aa5 - Immunization history:: Client reports having NOT received the Covid vaccine. - Social history:: Smoking status: Patient reports the use of cigarette tobacco products, smokes one pack cigarettes per day. Screenin:34 Abuse screen: Denies threats or abuse. Denies injuries from another. Nutritional ch5 screening: On. Tuberculosis screening: No symptoms or risk factors identified. Fall Risk None identified. Assessment: 10:30 Reassessment: No changes from previously documented assessment. General: Appears in no ch5 apparent distress. uncomfortable. Pain:. Vital Signs: 10:20 BP 138 / 83; Pulse 82; Resp 18 S; Temp 98.0(TE); Pulse Ox 98.0% on R/A; Weight 120.2 kg aa5 (R); Height 5 ft. 4 in. (162.56 cm) (R); 10:20 Body Mass Index 45.49 (120.20 kg, 162.56 cm) 5 ED Course: 10:16 Patient arrived in ED. as 10:18 Arm band placed on. aa5 10:19 Triage completed. aa5 10:28 Jorge L Haider PA is PHCP. jr8 10:28 Corey Lezama MD is Attending Physician. jr8 10:29 Serafin Irby, RN is Primary Nurse. 5 10:34 Bed in low position. Call light in reach. Side rails up X 1. 5 10:34 No provider procedures requiring assistance completed. 5 10:43 COVID-19 : Document "Date of Symptom Onset" if Symptomatic. Sent. 5 Administered Medications: No medications were administered Outcome: 10:43 Discharge ordered by . 8 10:49 Discharged to home ambulatory. 5 10:49 Condition: stable 10:49 Discharge instructions given to patient, Prescriptions given X 1. 10:49 Patient left the ED. [facility] Signatures: Mere Quevedo Audri, RN RN [facility] Jorge L Haider PA PA [facility] Serafin Irby, RN RN [facility]
--- NOTE | 2021-08-11 10:43 | EDPHYS ---
Physician Documentation [facility] Name: Donny Arreguin Age: 25 yrs Sex: Female : 1995 Arrival Date: 08/11/2021 Time: 10:16 Bed 11 Private MD: ED Physician Coery Lezama HPI: 08/11 10:49 This 25 yrs old Female presents to ER via Ambulatory with complaints of jr8 Drainage From Ear. 10:49 The complaints affect the right ear. Onset: The symptoms/episode began/occurred jr8 acutely, 4 day(s) ago. Modifying factors: The symptoms are alleviated by nothing, the symptoms are aggravated by nothing. Associated signs and symptoms: Pertinent positives: Sore throat, body aches, chills. Severity of symptoms: At their worst the symptoms were mild in the emergency department the symptoms are unchanged. The patient has not experienced similar symptoms in the past. The patient has not recently seen a physician. Patient stated that she was also concerned for her having Covid. Patient stated that her friend had similar symptoms and had tested positive.. Historical: - Allergies: 10:20 No Known Allergies; aa5 - PMHx: 10:20 None; aa5 - PSHx: 10:20 None; aa5 - Immunization history:: Client reports having NOT received the Covid vaccine. - Social history:: Smoking status: Patient reports the use of cigarette tobacco products, smokes one pack cigarettes per day. ROS: 10:49 Eyes: Negative for injury, pain, redness, and discharge, Neck: Negative for injury, jr8 pain, and swelling, Cardiovascular: Negative for chest pain, palpitations, and edema, Respiratory: Negative for shortness of breath, cough, wheezing, and pleuritic chest pain, Abdomen/GI: Negative for abdominal pain, nausea, vomiting, diarrhea, and constipation, Back: Negative for injury and pain, MS/Extremity: Negative for injury and deformity, Skin: Negative for injury, rash, and discoloration, Neuro: Negative for headache, weakness, numbness, tingling, and seizure. 10:49 Constitutional: Positive for body aches, chills. 10:49 ENT: Positive for drainage from ear(s), ear pain, sore throat. Exam: 10:49 Constitutional: This is a well developed, well nourished patient who is awake, alert, jr8 and in no acute distress. Eyes: Pupils equal round and reactive to light, extra-ocular motions intact. Lids and lashes normal. Conjunctiva and sclera are non-icteric and not injected. Cornea within normal limits. Periorbital areas with no swelling, redness, or edema. Neck: Trachea midline, no thyromegaly or masses palpated, and no cervical lymphadenopathy. Supple, full range of motion without nuchal rigidity, or vertebral point tenderness. No Meningismus. Cardiovascular: Regular rate and rhythm with a normal S1 and S2. No gallops, murmurs, or rubs. Normal PMI, no JVD. No pulse deficits. Respiratory: Lungs have equal breath sounds bilaterally, clear to auscultation and percussion. No rales, rhonchi or wheezes noted. No increased work of breathing, no retractions or nasal flaring. Abdomen/GI: Soft, non-tender, with normal bowel sounds. No distension or tympany. No guarding or rebound. No evidence of tenderness throughout. Skin: Warm, dry with normal turgor. Normal color with no rashes, no lesions, and no evidence of cellulitis. MS/ Extremity: Pulses equal, no cyanosis. Neurovascular intact. Full, normal range of motion. Neuro: Awake and alert, GCS 15, oriented to person, place, time, and situation. Cranial nerves II-XII grossly intact. Motor strength 5/5 in all extremities. Sensory grossly intact. 10:49 ENT: External ear(s): are unremarkable, Ear canal(s): erythema, that is moderate, of the right canal, swelling, that is moderate, of the right canal, TM's: are normal, Examination of the other ear shows no obvious abnormality, Nose: is normal, Mouth: Lips: moist, Oral mucosa: pink and intact, moist, Gums: pink, Tongue: is moist, Posterior pharynx: Airway: patent, Tonsils: are normal in appearance, Uvula: midline, non-edematous, no erythema, swelling, is not appreciated, erythema, is not appreciated. Vital Signs: 10:20 BP 138 / 83; Pulse 82; Resp 18 S; Temp 98.0(TE); Pulse Ox 98.0% on R/A; Weight 120.2 kg aa5 (R); Height 5 ft. 4 in. (162.56 cm) (R); 10:20 Body Mass Index 45.49 (120.20 kg, 162.56 cm) aa5 MDM: 10:28 Patient medically screened. jr8 10:38 Data reviewed: vital signs, nurses notes, lab test result(s), and as a result, I will jr8 discharge patient. Data interpreted: Pulse oximetry: on room air is 98 %. Interpretation: normal. Counseling: I had a detailed discussion with the patient and/or guardian regarding: the historical points, exam findings, and any diagnostic results supporting the discharge/admit diagnosis, the need for outpatient follow up, a family practitioner, to return to the emergency department if symptoms worsen or persist or if there are any questions or concerns that arise at home. Administered Medications: No medications were administered Disposition: 11:04 Co-signature as Attending Physician, Corey Lezama MD I agree with the assessment and kdr plan of care. Disposition Summary: 08/11/21 10:43 Discharge Ordered Location: Home jr Problem: new jr8 Symptoms: have improved jr8 Condition: Stable jr8 Diagnosis - Unspecified otitis externa, right ear jr8 Followup: jr8 - With: Private Physician - When: 1 week - Reason: Recheck today's complaints, Continuance of care, Re-evaluation by your physician Discharge Instructions: - Discharge Summary Sheet jr8 - Ear Drops, Adult jr8 - Otitis Externa jr8 Forms: - Medication Reconciliation Form jr8 - Work release form jr8 - Thank You Letter jr8 - Antibiotic Education jr8 - Prescription Opioid Use jr8 Prescriptions: - Cortisporin-TC 3.3-3-10-0.5 mg/mL Otic drops,suspension - instill 4 drops by OTIC route every 6 hours for 7 days; 1 bottle; Refills: 0, jr8 Product Selection Permitted Signatures: Dispatcher [employer] EDMS Corey Lezama MD MD [facility] Mare Schneider RN RN aa5 Jorge L Haider PA PA jr8
[2021-08-11 10:54] VITALS: BP 138/83; TEMP 98
== END 2021-08-11 10:49 | disposition home or self-care (01) ==
LOC: ER 10:12
DX: H60.91 Unspecified otitis externa, right ear (principal); F17.210 Nicotine dependence, cigarettes, uncomplicated; Z20.822 Contact with and (suspected) exposure to COVID-19
CPT/HCPCS: 99283; U0003